=== PATIENT | male | born 1960 | race African-American/Black ===

== ENCOUNTER 2017-04-02 13:09 | Inpatient (IN) ==
[2017-04-02] MEDS ORDERED: SODIUM CHLORIDE 0.9% 1,000 ML IV STA (13:47)
[2017-04-02 14:32] LABS: Basophils # 0.1 10*3/uL (0.0-0.2); Basophils % 0.3 % (0.0-0.8); Hematocrit 41.8 VOL% (42.0-52.0); Hemoglobin 14.8 GM/DL (14.0-18.0); Immature Granulocytes % 0.5 %; Immature Granulocytes Absolute 0.08 #; Lymphocytes # 1.3 10*3/uL (1.4-4.0); Lymphocytes % 7.2 % (21.2-54.2); Mean Corpuscular HGB Conc 35.4 GM/DL (32-36); Mean Corpuscular Hemoglobin 30 PG (27-34); Mean Corpuscular Volume 84.3 FL (87-102); Mean Platelet Volume 12.2 FL (9.6-12.0); Monocytes # 1.6 10*3/uL (0.11-0.8); Monocytes % 9.4 % (1.7-12.7); Neutrophils # 14.5 10*3/uL (1.4-7.4); Neutrophils % 82.6 % (38.7-73.9); Platelet Count 156 T/CUMM (130-400); Red Blood Count 4.96 MC/CUMM (3.8-5.5); Red Cell Distribution Width 13.9 % (9.3-17.3); White Blood Count 17.5 T/CUMM (4-12)
[2017-04-02 14:50] LABS: Albumin 3.6 G/DL (3.4-5.0); Bilirubin,Total 0.7 MG/DL (0.2-1.0); Calcium 8.8 MG/DL (8.5-10.1); Lactic Acid 1.6 MMOL/L (0.4-2.0); Potassium 3.8 MMOL/L (3.5-5.1); Total Protein 7.3 G/DL (6.4-8.3)
[2017-04-02 15:36] LABS: Apearance,Urine Clear (Clear); Urine Color Yellow (Yellow); Urine Specific Gravity 1.005 (1.001-1.035)
[2017-04-02 15:37] LABS: Bilirubin,Urine Negative (Negative); Blood, Urine Negative (Negative); Glucose,Urine (UA) Negative (Negative); Ketones,Urine Negative (Negative); Nitrite,Urine Negative (Negative); Protein,Urine Negative; RBC,Urine 0-3 /HPF (0-4)
[2017-04-02 15:38] LABS: Bacteria,Urine Trace /HPF (Few); Squamous Epithelial Cell,Urine RARE /HPF (0-10); WBC,Urine 30-35 /HPF (0-6)
[2017-04-02] MEDS ORDERED: LEVOFLOXACIN INJ 750 MG in PREMIX 1 EACH IV STA (16:01)
[2017-04-02] MEDS ORDERED: LEVOFLOXACIN INJ 150 ML IV ONE (16:07)
[2017-04-02] MEDS ORDERED: ACETAMINOPHEN 500 MG TABLET ONE (16:12)
[2017-04-02] MEDS ORDERED: ACETAMINOPHEN 500 MG TABLET PO STA (16:15)
[2017-04-02] MEDS ORDERED: ONDANSETRON 4 MG/2 ML VIAL IV PRN (16:34)
[2017-04-02] MEDS ORDERED: MORPHINE 2 MG/1 ML SYRINGE IV PRN (16:34)
[2017-04-02] MEDS ORDERED: MAGNESIUM HYDROXIDE SUSP 30 ML UDCUP PO PRN (16:37)
[2017-04-02] MEDS ORDERED: CLORAZEPATE 3.75 MG TABLET PO PRN (16:49)
[2017-04-02] MEDS ORDERED: NICOTINE 21 MG/24 HR PATCH TRANSDERM SCH (17:00)
[2017-04-02] MEDS ORDERED: SODIUM CHLORIDE 0.9% 1,000 ML IV ONE ×2 (17:28→17:51)
[2017-04-02] MEDS ORDERED: THIAMINE 200 MG/2 ML VIAL ONE (18:43)
[2017-04-02] MEDS ORDERED: PIPERACILLIN/TAZOBACTAM 3,375 MG VIAL IV ONE (18:43)
[2017-04-02] MEDS ORDERED: SODIUM CHLORIDE 0.9% 100 ML IV ONE (18:44)
[2017-04-02] MEDS: THIAMINE 200 MG/2 ML VIAL IV SCH (18:49)
[2017-04-02] MEDS: SODIUM CHLORIDE 0.9% 1,000 ML IV SCH (18:49)
[2017-04-02] MEDS ORDERED: NOREPINEPHRINE 4 MG/4 ML VIAL IV ONE (19:14)
[2017-04-02] MEDS: ALBUTEROL/IPRATROPIUM 3 ML NEB RESP TX SCH (19:16)
[2017-04-02] MEDS: NOREPINEPHRINE 8 MG in SODIUM CHLORIDE 0.9% 242 ML IV SCH (19:24)
[2017-04-02] MEDS: PIPERACILLIN/TAZOBACTAM 3,375 MG in SODIUM CHLORIDE 0.9% 100 ML IV SCH (19:25)
[2017-04-02] MEDS ORDERED: TAMSULOSIN 0.4 MG CAPSULE PO ONE (21:42)
[2017-04-02] MEDS ORDERED: DOCUSATE SODIUM 100 MG CAPSULE ONE (21:42)
[2017-04-02] MEDS ORDERED: SIMETHICONE CHEW 80 MG TABLET PO ONE (21:42)
[2017-04-02] MEDS ORDERED: GABAPENTIN 300 MG CAPSULE ONE (21:42)
[2017-04-02] MEDS ORDERED: ENOXAPARIN 40 MG/0.4 ML SYRINGE ONE (21:42)
[2017-04-02] MEDS: SIMETHICONE CHEW 80 MG TABLET PO SCH (21:55)
[2017-04-02] MEDS: traZODone 50 MG TABLET PO SCH (21:55)
[2017-04-02] MEDS: TAMSULOSIN 0.4 MG CAPSULE PO SCH (21:55)
[2017-04-02] MEDS: ENOXAPARIN 40 MG/0.4 ML SYRINGE SUBCUT SCH (21:55)
[2017-04-02] MEDS: DOCUSATE SODIUM 100 MG CAPSULE PO SCH (21:55)
[2017-04-02] MEDS: SIMVASTATIN 20 MG TABLET PO SCH (21:56)
[2017-04-02] MEDS: TOPIRAMATE 100 MG TABLET PO SCH (21:56)
[2017-04-02] MEDS: GABAPENTIN 300 MG CAPSULE PO SCH (21:56)
[2017-04-03] MEDS: PIPERACILLIN/TAZOBACTAM 3,375 MG in SODIUM CHLORIDE 0.9% 100 ML IV SCH ×3 (04:39→20:59)
[2017-04-03 04:56] LABS: Basophils % 0.2 % (0.0-0.8); Hematocrit 39.8 VOL% (42.0-52.0); Hemoglobin 13.8 GM/DL (14.0-18.0); Immature Granulocytes % 0.5 %; Immature Granulocytes Absolute 0.09 #; Lymphocytes # 1.7 10*3/uL (1.4-4.0); Lymphocytes % 10.4 % (21.2-54.2); Mean Corpuscular HGB Conc 34.7 GM/DL (32-36); Mean Corpuscular Hemoglobin 30 PG (27-34); Mean Corpuscular Volume 85.6 FL (87-102); Mean Platelet Volume 12.2 FL (9.6-12.0); Monocytes # 1.5 10*3/uL (0.11-0.8); Neutrophils # 13.2 10*3/uL (1.4-7.4); Neutrophils % 79.9 % (38.7-73.9); Platelet Count 153 T/CUMM (130-400); Red Blood Count 4.65 MC/CUMM (3.8-5.5); Red Cell Distribution Width 14.1 % (9.3-17.3); White Blood Count 16.6 T/CUMM (4-12)
[2017-04-03 05:12] LABS: Calcium 8.2 MG/DL (8.5-10.1); Osmolality,Calculated 283.3 MOS/KG (273-304)
[2017-04-03] MEDS: SODIUM CHLORIDE 0.9% 1,000 ML IV SCH ×3 (07:44→16:59)
[2017-04-03] MEDS: ALBUTEROL/IPRATROPIUM 3 ML NEB RESP TX SCH ×4 (08:25→19:07)
[2017-04-03] MEDS ORDERED: THIAMINE 200 MG/2 ML VIAL ONE (08:53)
[2017-04-03] MEDS ORDERED: GABAPENTIN 100 MG CAPSULE ONE (08:53)
[2017-04-03] MEDS ORDERED: SIMETHICONE CHEW 80 MG TABLET PO ONE ×2 (08:54→11:45)
[2017-04-03] MEDS ORDERED: TAMSULOSIN 0.4 MG CAPSULE PO ONE (08:54)
[2017-04-03] MEDS ORDERED: PANTOPRAZOLE 40 MG TABLET PO ONE (08:54)
[2017-04-03] MEDS ORDERED: ASPIRIN CHEW 81 MG TABLET PO ONE (08:54)
[2017-04-03] MEDS ORDERED: DOCUSATE SODIUM 100 MG CAPSULE ONE (08:54)
[2017-04-03] MEDS: SIMETHICONE CHEW 80 MG TABLET PO SCH ×4 (09:09→21:03)
[2017-04-03] MEDS: PANTOPRAZOLE 40 MG TABLET PO SCH (09:10)
[2017-04-03] MEDS: TAMSULOSIN 0.4 MG CAPSULE PO SCH ×2 (09:10→21:04)
[2017-04-03] MEDS: THIAMINE 200 MG/2 ML VIAL IV SCH (09:10)
[2017-04-03] MEDS: GABAPENTIN 100 MG CAPSULE PO SCH (09:10)
[2017-04-03] MEDS: ASPIRIN EC 81 MG TABLET PO SCH (09:10)
[2017-04-03] MEDS: DOCUSATE SODIUM 100 MG CAPSULE PO SCH ×2 (09:10→21:02)
[2017-04-03] MEDS: MULTIVITAMIN (BEROCCA) TABLET PO SCH (10:39)
[2017-04-03] MEDS: CHOLECALCIFEROL 1,000 UNIT TABLET PO SCH (10:39)
[2017-04-03] MEDS: CYANOCOBALAMIN 500 MCG TABLET PO SCH (10:39)
[2017-04-03] MEDS: FOLIC ACID 1 MG TABLET PO SCH (10:39)
[2017-04-03] MEDS: MULTIVITAMIN (CENTRUM) TABLET PO SCH (10:40)
[2017-04-03] MEDS: TOPIRAMATE 100 MG TABLET PO SCH ×2 (11:46→21:02)
[2017-04-03] MEDS ORDERED: LEVOFLOXACIN INJ 500 MG in PREMIX 1 EACH IV SCH (16:34)
[2017-04-03] MEDS: NICOTINE 21 MG/24 HR PATCH TRANSDERM SCH (17:07)
[2017-04-03] MEDS: NOREPINEPHRINE 8 MG in SODIUM CHLORIDE 0.9% 242 ML IV SCH (20:59)
[2017-04-03] MEDS: ACETAMINOPHEN 325 MG TABLET PO PRN (21:02)
[2017-04-03] MEDS: traZODone 50 MG TABLET PO SCH (21:03)
[2017-04-03] MEDS: GABAPENTIN 300 MG CAPSULE PO SCH (21:03)
[2017-04-03] MEDS: SIMVASTATIN 20 MG TABLET PO SCH (21:04)
[2017-04-03] MEDS: ENOXAPARIN 40 MG/0.4 ML SYRINGE SUBCUT SCH (21:05)
[2017-04-04] MEDS: SODIUM CHLORIDE 0.9% 1,000 ML IV SCH ×4 (01:00→22:05)
[2017-04-04] MEDS: PIPERACILLIN/TAZOBACTAM 3,375 MG in SODIUM CHLORIDE 0.9% 100 ML IV SCH ×3 (04:45→22:04)
[2017-04-04] MEDS: ALBUTEROL/IPRATROPIUM 3 ML NEB RESP TX SCH ×4 (07:07→20:20)
[2017-04-04 07:30] LABS: Basophils % 0.3 % (0.0-0.8); Eosinophils # 0.1 10*3/uL (0.0-0.87); Eosinophils % 0.4 % (0.00-10.9); Hematocrit 36.8 VOL% (42.0-52.0); Hemoglobin 12.3 GM/DL (14.0-18.0); Immature Granulocytes % 0.4 %; Immature Granulocytes Absolute 0.05 #; Lymphocytes # 1.6 10*3/uL (1.4-4.0); Lymphocytes % 14.6 % (21.2-54.2); Mean Corpuscular HGB Conc 33.4 GM/DL (32-36); Mean Corpuscular Hemoglobin 29 PG (27-34); Mean Platelet Volume 11.5 FL (9.6-12.0); Monocytes # 1.2 10*3/uL (0.11-0.8); Monocytes % 10.8 % (1.7-12.7); Neutrophils # 8.2 10*3/uL (1.4-7.4); Neutrophils % 73.5 % (38.7-73.9); Platelet Count 144 T/CUMM (130-400); Red Blood Count 4.18 MC/CUMM (3.8-5.5); Red Cell Distribution Width 14.1 % (9.3-17.3); White Blood Count 11.1 T/CUMM (4-12)
[2017-04-04] MEDS: SIMETHICONE CHEW 80 MG TABLET PO SCH ×4 (07:47→22:03)
[2017-04-04 07:55] LABS: Calcium 8.2 MG/DL (8.5-10.1); Osmolality,Calculated 281.1 MOS/KG (273-304); Potassium 4.1 MMOL/L (3.5-5.1)
[2017-04-04] MEDS: DOCUSATE SODIUM 100 MG CAPSULE PO SCH ×2 (08:00→22:03)
[2017-04-04] MEDS: MULTIVITAMIN (CENTRUM) TABLET PO SCH (08:00)
[2017-04-04] MEDS: CYANOCOBALAMIN 500 MCG TABLET PO SCH (08:00)
[2017-04-04] MEDS: TOPIRAMATE 100 MG TABLET PO SCH ×2 (08:01→22:04)
[2017-04-04] MEDS: MULTIVITAMIN (BEROCCA) TABLET PO SCH (08:01)
[2017-04-04] MEDS: CHOLECALCIFEROL 1,000 UNIT TABLET PO SCH (08:01)
[2017-04-04] MEDS: ASPIRIN EC 81 MG TABLET PO SCH (08:01)
[2017-04-04] MEDS: TAMSULOSIN 0.4 MG CAPSULE PO SCH ×2 (08:01→22:04)
[2017-04-04] MEDS: PANTOPRAZOLE 40 MG TABLET PO SCH (08:01)
[2017-04-04] MEDS: GABAPENTIN 100 MG CAPSULE PO SCH (08:01)
[2017-04-04] MEDS: THIAMINE 200 MG/2 ML VIAL IV SCH (08:02)
[2017-04-04] MEDS: FOLIC ACID 1 MG TABLET PO SCH (08:02)
[2017-04-04] MEDS: ACETAMINOPHEN 325 MG TABLET PO PRN (11:59)
[2017-04-04 14:08] LABS: Hepatitis A Ab IgM Result Negative (Negative); Hepatitis B Core IgM Quant 0.16 Index; Hepatitis B Core IgM Result Negative (Negative); Hepatitis B Surface Ag Quant 0.24 Index; Hepatitis B Surface Ag Result Negative (Negative)
[2017-04-04] MEDS: NICOTINE 21 MG/24 HR PATCH TRANSDERM SCH ×2 (15:32→16:01)
[2017-04-04] MEDS: traZODone 50 MG TABLET PO SCH (22:03)
[2017-04-04] MEDS: GABAPENTIN 300 MG CAPSULE PO SCH (22:03)
[2017-04-04] MEDS: SIMVASTATIN 20 MG TABLET PO SCH (22:04)
[2017-04-04] MEDS: ENOXAPARIN 40 MG/0.4 ML SYRINGE SUBCUT SCH (22:04)
[2017-04-05] MEDS: SODIUM CHLORIDE 0.9% 1,000 ML IV SCH ×3 (02:33→17:26)
[2017-04-05] MEDS: PIPERACILLIN/TAZOBACTAM 3,375 MG in SODIUM CHLORIDE 0.9% 100 ML IV SCH ×2 (03:33→13:11)
[2017-04-05 06:05] LABS: Basophils % 0.3 % (0.0-0.8); Eosinophils # 0.1 10*3/uL (0.0-0.87); Eosinophils % 0.5 % (0.00-10.9); Hematocrit 36.4 VOL% (42.0-52.0); Hemoglobin 12.3 GM/DL (14.0-18.0); Immature Granulocytes % 0.5 %; Immature Granulocytes Absolute 0.05 #; Lymphocytes # 1.8 10*3/uL (1.4-4.0); Lymphocytes % 15.9 % (21.2-54.2); Mean Corpuscular HGB Conc 33.8 GM/DL (32-36); Mean Corpuscular Hemoglobin 29 PG (27-34); Mean Corpuscular Volume 86.1 FL (87-102); Mean Platelet Volume 12.5 FL (9.6-12.0); Monocytes # 1.1 10*3/uL (0.11-0.8); Monocytes % 10.3 % (1.7-12.7); Neutrophils % 72.5 % (38.7-73.9); Platelet Count 173 T/CUMM (130-400); Red Blood Count 4.23 MC/CUMM (3.8-5.5); Red Cell Distribution Width 13.8 % (9.3-17.3); White Blood Count 11.1 T/CUMM (4-12)
[2017-04-05 06:35] LABS: Bilirubin,Total 1.6 MG/DL (0.2-1.0); Calcium 8.4 MG/DL (8.5-10.1); Osmolality,Calculated 272.8 MOS/KG (273-304); Potassium 3.7 MMOL/L (3.5-5.1); Total Protein 6.7 G/DL (6.4-8.3)
[2017-04-05] MEDS: ALBUTEROL/IPRATROPIUM 3 ML NEB RESP TX SCH ×3 (07:58→14:35)
[2017-04-05] MEDS: SIMETHICONE CHEW 80 MG TABLET PO SCH ×4 (08:33→17:26)
[2017-04-05] MEDS: CYANOCOBALAMIN 500 MCG TABLET PO SCH (09:16)
[2017-04-05] MEDS: TAMSULOSIN 0.4 MG CAPSULE PO SCH (09:17)
[2017-04-05] MEDS: GABAPENTIN 100 MG CAPSULE PO SCH (09:17)
[2017-04-05] MEDS: MULTIVITAMIN (CENTRUM) TABLET PO SCH (09:17)
[2017-04-05] MEDS: CHOLECALCIFEROL 1,000 UNIT TABLET PO SCH (09:17)
[2017-04-05] MEDS: THIAMINE 200 MG/2 ML VIAL IV SCH (09:17)
[2017-04-05] MEDS: DOCUSATE SODIUM 100 MG CAPSULE PO SCH (09:17)
[2017-04-05] MEDS: ASPIRIN EC 81 MG TABLET PO SCH (09:17)
[2017-04-05] MEDS: MULTIVITAMIN (BEROCCA) TABLET PO SCH (09:17)
[2017-04-05] MEDS: FOLIC ACID 1 MG TABLET PO SCH (09:17)
[2017-04-05] MEDS: TOPIRAMATE 100 MG TABLET PO SCH (09:17)
[2017-04-05] MEDS: PANTOPRAZOLE 40 MG TABLET PO SCH (09:17)
[2017-04-05 12:05] VITALS: BP 150/82
[2017-04-05] MEDS: NICOTINE 21 MG/24 HR PATCH TRANSDERM SCH (17:26)
== END 2017-04-05 19:12 | disposition home or self-care (01) | DRG 871 ==
LOC: EDBD → EDUNIT# → N.ED 13:09 → SUATTDRO 16:34 → N.EDINP 16:34 → N.ICU 04-03 12:00 → N.5E 04-04 13:42
PROVIDERS: ADMIT Internal Medicine; ATTEND Internal Medicine Infectious Disease

== ENCOUNTER 2018-10-22 07:58 | Inpatient (IN) ==
[2018-10-22] MEDS ORDERED: SODIUM CHLORIDE 0.9% 1,000 ML IV STA ×2 (08:39→09:08)
[2018-10-22 08:50] LABS: Basophils # 0.1 10*3/uL (0.0-0.2); Basophils % 0.5 % (0.0-0.8); Eosinophils # 0.1 10*3/uL (0.0-0.87); Eosinophils % 0.6 % (0.00-10.9); Hematocrit 40.6 VOL% (42.0-52.0); Hemoglobin 13.8 GM/DL (14.0-18.0); Immature Granulocytes % 0.7 %; Immature Granulocytes Absolute 0.17 #; Lymphocytes # 4.5 10*3/uL (1.4-4.0); Lymphocytes % 18.4 % (21.2-54.2); Mean Corpuscular Volume 84.4 FL (87-102); Mean Platelet Volume 11.1 FL (9.6-12.0); Monocytes % 8.2 % (1.7-12.7); Neutrophils % 71.6 % (38.7-73.9); Platelet Count 274 T/CUMM (130-400); Red Blood Count 4.81 MC/CUMM (3.8-5.5); Red Cell Distribution Width 13.4 % (9.3-17.3); White Blood Count 24.2 T/CUMM (4-12)
[2018-10-22 09:05] LABS: Alanine Aminotransferase 17 U/L (16-61); Albumin 3.3 G/DL (3.4-5.0); Alkaline Phosphatase 99 U/L (45-117); Aspartate Amino Transferase 8 U/L (0-37); Blood Urea Nitrogen 19 MG/DL (7-18); Calcium 9.9 MG/DL (8.5-10.1); Glucose 134 MG/DL (74-106); Osmolality,Calculated 278.7 MOS/KG (273-304); Total Protein 8.6 G/DL (6.4-8.3)
[2018-10-22 09:20] LABS: Eosinophils 1 % (0-10); Hypochromasia Slight; Lymphocytes 16 % (20-55); Platelet Estimate Adequate; Segmented Neutrophils 73 % (50-85); Total Cells Counted 100
[2018-10-22] MEDS ORDERED: PIPERACILLIN/TAZOBACTAM 3,375 MG in SODIUM CHLORIDE 0.9% 100 ML IV STA (09:20)
[2018-10-22] MEDS ORDERED: ACETAMINOPHEN 325 MG TABLET PO PRN (11:21)
[2018-10-22] MEDS ORDERED: DOCUSATE SODIUM 100 MG CAPSULE PO PRN (11:21)
[2018-10-22] MEDS ORDERED: ONDANSETRON 4 MG/2 ML VIAL IV PRN (11:21)
[2018-10-22 12:07] LABS: Risk Ratio 4.19; Thyroid Stimulating Hormone 0.749 uIU/ml (0.358-3.74); VLDL CHOLESTEROL 23.8 MG/DL
[2018-10-22] MEDS ORDERED: ALBUTEROL 2.5 MG/3 ML NEB RESP TX ONE (13:37)
[2018-10-22] MEDS ORDERED: cefTRIAXone 1,000 MG in SYRINGE 1 EACH IV ONE (13:59)
[2018-10-22] MEDS ORDERED: cefTRIAXone 1,000 MG VIAL ONE (14:05)
[2018-10-22] MEDS ORDERED: MAGNESIUM SULF RIDER 4 GM in PREMIX 1 EACH IV PRN (15:02)
[2018-10-22] MEDS ORDERED: PHENYLEPHRINE DRIP 20 MG/250 ML PREMIX IV ONE (15:11)
[2018-10-22] MEDS ORDERED: SEVOFLURANE 1 UNIT/15 MINUTE INH ONE (15:11)
[2018-10-22] MEDS ORDERED: PROPOFOL 200 MG/20 ML VIAL IV ONE (15:11)
[2018-10-22] MEDS ORDERED: MIDAZOLAM 2 MG/2 ML VIAL ONE (15:11)
[2018-10-22] MEDS ORDERED: fentaNYL 100 MCG/2 ML VIAL ONE (15:12)
[2018-10-22] MEDS ORDERED: ROCURONIUM 100 MG/10 ML VIAL IV ONE (15:12)
[2018-10-22] MEDS ORDERED: ETOMIDATE 40 MG/20 ML VIAL IV ONE (15:12)
[2018-10-22] MEDS ORDERED: PHENYLEPHRINE 1 MG/10 ML SYRINGE IV ONE (15:12)
[2018-10-22] MEDS ORDERED: SUCCINYLCHOLINE 200 MG/10 ML VIAL ONE (15:12)
[2018-10-22] MEDS ORDERED: CETIRIZINE 10 MG TABLET PO PRN (15:31)
[2018-10-22] MEDS ORDERED: TOPIRAMATE 100 MG TABLET PO SCH (16:00)
[2018-10-22] MEDS: SODIUM CHLORIDE 0.9% 1,000 ML IV SCH (16:15)
[2018-10-22] MEDS: ENOXAPARIN 40 MG/0.4 ML SYRINGE SUBCUT SCH (16:16)
[2018-10-22] MEDS: PHENYLEPHRINE DRIP 40 MG/250 ML PREMIX IV PRN (16:45)
[2018-10-22 17:37] LABS: Apearance,Urine CLEAR (Clear); Bilirubin,Urine Negative (Negative); Blood, Urine Small mg/dL (Negative); Glucose,Urine (UA) Negative (Negative); Ketones,Urine Negative (Negative); Nitrite,Urine Negative (Negative); Protein,Urine 30 MG/DL; RBC,Urine 24 /HPF (0-4); Urine Color Straw (Yellow); Urine Specific Gravity 1.011 (1.001-1.035); Urine Urobilinogen < 2.0 EU/DL (0.2-1.0); WBC,Urine 13 /HPF (0-6)
[2018-10-22 17:57] LABS: Cannabinoid Screen,Urine 70 (Negative)
[2018-10-22 17:58] LABS: Barbiturates Screen,Urine <20 (Negative); Benzodiazepines Screen,Urine /POS (Negative); Opiate Screen,Urine <50 (Negative); Phencyclidine Screen,Urine <5 (Negative)
[2018-10-22] MEDS: PIPERACILLIN/TAZOBACTAM 3,375 MG in SODIUM CHLORIDE 0.9% 100 ML IV SCH (18:22)
[2018-10-22] MEDS: MAGNESIUM SULF RIDER 2 GM in PREMIX 1 EACH IV PRN (19:36)
[2018-10-22] MEDS: ALBUTEROL/IPRATROPIUM 3 ML NEB RESP TX SCH (20:16)
[2018-10-22] MEDS ORDERED: ACAMPROSATE 333 MG PO SCH (21:00)
[2018-10-22] MEDS: traZODone 50 MG TABLET PO SCH (21:27)
[2018-10-22] MEDS: GABAPENTIN 100 MG CAPSULE PO SCH (21:28)
[2018-10-22] MEDS: SIMVASTATIN 40 MG TABLET PO SCH (21:28)
[2018-10-22] MEDS: LATANOPROST 0.005% OPH SOLN 2.5 ML BOTTLE BOTH EYES SCH (21:28)
[2018-10-22] MEDS: levETIRAcetam 500 MG TABLET PO SCH (21:28)
[2018-10-23] MEDS: SODIUM CHLORIDE 0.9% 1,000 ML IV SCH ×3 (01:42→16:49)
[2018-10-23] MEDS: PIPERACILLIN/TAZOBACTAM 3,375 MG in SODIUM CHLORIDE 0.9% 100 ML IV SCH ×3 (02:58→23:26)
[2018-10-23] MEDS: PHENYLEPHRINE DRIP 40 MG/250 ML PREMIX IV PRN ×2 (02:58→10:50)
[2018-10-23 04:23] LABS: Basophils # 0.1 10*3/uL (0.0-0.2); Basophils % 0.3 % (0.0-0.8); Eosinophils # 0.2 10*3/uL (0.0-0.87); Eosinophils % 0.7 % (0.00-10.9); Hematocrit 34.1 VOL% (42.0-52.0); Immature Granulocytes % 0.6 %; Immature Granulocytes Absolute 0.15 #; Lymphocytes # 3.6 10*3/uL (1.4-4.0); Lymphocytes % 15.1 % (21.2-54.2); Mean Corpuscular HGB Conc 33.7 GM/DL (32-36); Mean Corpuscular Volume 84.6 FL (87-102); Mean Platelet Volume 11.8 FL (9.6-12.0); Monocytes % 6.1 % (1.7-12.7); Neutrophils % 77.2 % (38.7-73.9); Platelet Count 250 T/CUMM (130-400); Red Blood Count 4.03 MC/CUMM (3.8-5.5); Red Cell Distribution Width 13.3 % (9.3-17.3)
[2018-10-23 04:29] LABS: Calcium 8.2 MG/DL (8.5-10.1); Osmolality,Calculated 279.4 MOS/KG (273-304)
[2018-10-23 04:31] LABS: Hemoglobin 11.5 GM/DL (14.0-18.0)
[2018-10-23 04:48] LABS: Band Neutrophils 1 % (0-10); Hypochromasia 1+; Lymphocytes 17 % (20-55); Platelet Estimate Adequate; Segmented Neutrophils 79 % (50-85); Total Cells Counted 100
[2018-10-23] MEDS: ALBUTEROL/IPRATROPIUM 3 ML NEB RESP TX SCH ×4 (07:38→19:34)
[2018-10-23] MEDS ORDERED: LEVOFLOXACIN INJ 500 MG in PREMIX 1 EACH IV ONE (08:26)
[2018-10-23] MEDS: GABAPENTIN 100 MG CAPSULE PO SCH ×3 (09:29→20:35)
[2018-10-23] MEDS: MULTIVITAMIN (CENTRUM) TABLET PO SCH (09:30)
[2018-10-23] MEDS: ASPIRIN EC 81 MG TABLET PO SCH (09:30)
[2018-10-23] MEDS: levETIRAcetam 500 MG TABLET PO SCH ×2 (09:31→20:35)
[2018-10-23] MEDS: THIAMINE 100 MG TABLET PO SCH (09:53)
[2018-10-23] MEDS: TOPIRAMATE 100 MG TABLET PO SCH ×2 (09:53→20:34)
[2018-10-23] MEDS ORDERED: SODIUM CHLORIDE 0.9% 1,500 ML IV ONE (10:00)
[2018-10-23] MEDS: TIMOLOL 0.5% OPH SOLN 5 ML BOTTLE BOTH EYES SCH (11:38)
[2018-10-23] MEDS ORDERED: LEVOFLOXACIN INJ 100 ML IV ONE (12:21)
[2018-10-23] MEDS ORDERED: PHENYLEPHRINE DRIP 20 MG/250 ML PREMIX IV ONE (13:57)
[2018-10-23] MEDS ORDERED: SEVOFLURANE 1 UNIT/15 MINUTE INH ONE (13:57)
[2018-10-23] MEDS ORDERED: PROPOFOL 200 MG/20 ML VIAL IV ONE (13:57)
[2018-10-23] MEDS ORDERED: fentaNYL 100 MCG/2 ML VIAL ONE (13:57)
[2018-10-23] MEDS ORDERED: MIDAZOLAM 2 MG/2 ML VIAL ONE (13:57)
[2018-10-23] MEDS ORDERED: ETOMIDATE 40 MG/20 ML VIAL IV ONE (13:58)
[2018-10-23] MEDS ORDERED: ROCURONIUM 100 MG/10 ML VIAL IV ONE (13:58)
[2018-10-23] MEDS ORDERED: ONDANSETRON 4 MG/2 ML VIAL ONE (13:58)
[2018-10-23] MEDS ORDERED: GLYCOPYRROLATE 0.4 MG/2 ML VIAL ONE (13:58)
[2018-10-23] MEDS ORDERED: NEOSTIGMINE 10 MG/10 ML VIAL ONE (13:58)
[2018-10-23] MEDS: ENOXAPARIN 40 MG/0.4 ML SYRINGE SUBCUT SCH (17:00)
[2018-10-23] MEDS: traZODone 50 MG TABLET PO SCH (20:34)
[2018-10-23] MEDS: SIMVASTATIN 40 MG TABLET PO SCH (20:35)
[2018-10-23] MEDS: LATANOPROST 0.005% OPH SOLN 2.5 ML BOTTLE BOTH EYES SCH (20:35)
[2018-10-24] MEDS: SODIUM CHLORIDE 0.9% 1,000 ML IV SCH ×2 (00:43→09:00)
[2018-10-24 05:11] LABS: Basophils % 0.2 % (0.0-0.8); Eosinophils # 0.2 10*3/uL (0.0-0.87); Eosinophils % 1.3 % (0.00-10.9); Hematocrit 30.3 VOL% (42.0-52.0); Immature Granulocytes % 0.5 %; Immature Granulocytes Absolute 0.07 #; Lymphocytes # 2.7 10*3/uL (1.4-4.0); Lymphocytes % 20.9 % (21.2-54.2); Mean Corpuscular Volume 86.3 FL (87-102); Mean Platelet Volume 11.6 FL (9.6-12.0); Monocytes % 6.9 % (1.7-12.7); Neutrophils % 70.2 % (38.7-73.9); Platelet Count 196 T/CUMM (130-400); Red Blood Count 3.51 MC/CUMM (3.8-5.5); Red Cell Distribution Width 13.5 % (9.3-17.3); White Blood Count 12.9 T/CUMM (4-12)
[2018-10-24] MEDS: PIPERACILLIN/TAZOBACTAM 3,375 MG in SODIUM CHLORIDE 0.9% 100 ML IV SCH ×3 (06:34→23:31)
[2018-10-24 06:56] LABS: Calcium 7.9 MG/DL (8.5-10.1)
[2018-10-24] MEDS: ALBUTEROL/IPRATROPIUM 3 ML NEB RESP TX SCH ×4 (07:40→19:45)
[2018-10-24] MEDS: GABAPENTIN 100 MG CAPSULE PO SCH ×3 (09:14→21:38)
[2018-10-24] MEDS: levETIRAcetam 500 MG TABLET PO SCH ×2 (09:15→21:38)
[2018-10-24] MEDS: TOPIRAMATE 100 MG TABLET PO SCH ×2 (09:15→21:39)
[2018-10-24] MEDS: THIAMINE 100 MG TABLET PO SCH (09:16)
[2018-10-24] MEDS: MULTIVITAMIN (CENTRUM) TABLET PO SCH (09:16)
[2018-10-24] MEDS: ASPIRIN EC 81 MG TABLET PO SCH (09:16)
[2018-10-24] MEDS: TIMOLOL 0.5% OPH SOLN 5 ML BOTTLE BOTH EYES SCH (09:20)
[2018-10-24] MEDS: LACTATED RINGERS 1,000 ML IV SCH (13:40)
[2018-10-24] MEDS: ENOXAPARIN 40 MG/0.4 ML SYRINGE SUBCUT SCH (13:40)
[2018-10-24] MEDS: traZODone 50 MG TABLET PO SCH (21:38)
[2018-10-24] MEDS: SIMVASTATIN 40 MG TABLET PO SCH (21:39)
[2018-10-24] MEDS: LATANOPROST 0.005% OPH SOLN 2.5 ML BOTTLE BOTH EYES SCH (22:02)
[2018-10-25 05:37] LABS: Basophils # 0.1 10*3/uL (0.0-0.2); Basophils % 0.5 % (0.0-0.8); Eosinophils # 0.2 10*3/uL (0.0-0.87); Eosinophils % 1.9 % (0.00-10.9); Hematocrit 28.4 VOL% (42.0-52.0); Hemoglobin 9.6 GM/DL (14.0-18.0); Immature Granulocytes Absolute 0.11 #; Lymphocytes # 2.3 10*3/uL (1.4-4.0); Lymphocytes % 20.9 % (21.2-54.2); Mean Corpuscular HGB Conc 33.8 GM/DL (32-36); Mean Platelet Volume 12.1 FL (9.6-12.0); Monocytes % 8.2 % (1.7-12.7); Neutrophils % 67.5 % (38.7-73.9); Platelet Count 140 T/CUMM (130-400); Red Blood Count 3.34 MC/CUMM (3.8-5.5); Red Cell Distribution Width 13.2 % (9.3-17.3)
[2018-10-25 05:43] LABS: Calcium 8.8 MG/DL (8.5-10.1); Osmolality,Calculated 281.1 MOS/KG (273-304)
[2018-10-25] MEDS: PIPERACILLIN/TAZOBACTAM 3,375 MG in SODIUM CHLORIDE 0.9% 100 ML IV SCH ×3 (06:37→23:41)
[2018-10-25] MEDS: LACTATED RINGERS 1,000 ML IV SCH ×3 (06:40→21:05)
[2018-10-25] MEDS: ALBUTEROL/IPRATROPIUM 3 ML NEB RESP TX SCH ×4 (07:55→19:47)
[2018-10-25] MEDS: ASPIRIN EC 81 MG TABLET PO SCH (09:29)
[2018-10-25] MEDS: MULTIVITAMIN (CENTRUM) TABLET PO SCH (09:29)
[2018-10-25] MEDS: levETIRAcetam 500 MG TABLET PO SCH ×2 (09:30→21:01)
[2018-10-25] MEDS: THIAMINE 100 MG TABLET PO SCH (09:30)
[2018-10-25] MEDS: TOPIRAMATE 100 MG TABLET PO SCH ×2 (09:31→21:01)
[2018-10-25] MEDS: TIMOLOL 0.5% OPH SOLN 5 ML BOTTLE BOTH EYES SCH (09:31)
[2018-10-25] MEDS: MAGNESIUM SULF RIDER 2 GM in PREMIX 1 EACH IV PRN ×2 (09:33→11:23)
[2018-10-25] MEDS: GABAPENTIN 100 MG CAPSULE PO SCH ×3 (09:39→21:01)
[2018-10-25] MEDS: LISINOPRIL 5 MG TABLET PO SCH (14:08)
[2018-10-25] MEDS: ENOXAPARIN 40 MG/0.4 ML SYRINGE SUBCUT SCH (14:09)
[2018-10-25] MEDS: LATANOPROST 0.005% OPH SOLN 2.5 ML BOTTLE BOTH EYES SCH (21:01)
[2018-10-25] MEDS: SIMVASTATIN 40 MG TABLET PO SCH (21:01)
[2018-10-25] MEDS: traZODone 50 MG TABLET PO SCH (21:10)
[2018-10-26 05:25] LABS: Basophils # 0.1 10*3/uL (0.0-0.2); Basophils % 0.5 % (0.0-0.8); Eosinophils # 0.2 10*3/uL (0.0-0.87); Hematocrit 31.9 VOL% (42.0-52.0); Hemoglobin 10.6 GM/DL (14.0-18.0); Immature Granulocytes % 0.7 %; Immature Granulocytes Absolute 0.07 #; Lymphocytes # 3.1 10*3/uL (1.4-4.0); Lymphocytes % 29.3 % (21.2-54.2); Mean Corpuscular HGB Conc 33.2 GM/DL (32-36); Mean Corpuscular Volume 86.7 FL (87-102); Mean Platelet Volume 11.9 FL (9.6-12.0); Monocytes % 7.3 % (1.7-12.7); Neutrophils % 60.2 % (38.7-73.9); Platelet Count 235 T/CUMM (130-400); Red Blood Count 3.68 MC/CUMM (3.8-5.5); Red Cell Distribution Width 13.4 % (9.3-17.3); White Blood Count 10.5 T/CUMM (4-12)
[2018-10-26 05:51] LABS: Calcium 8.9 MG/DL (8.5-10.1); Osmolality,Calculated 279.4 MOS/KG (273-304)
[2018-10-26] MEDS: LACTATED RINGERS 1,000 ML IV SCH ×2 (06:04→21:42)
[2018-10-26] MEDS: PIPERACILLIN/TAZOBACTAM 3,375 MG in SODIUM CHLORIDE 0.9% 100 ML IV SCH ×2 (06:05→14:39)
[2018-10-26] MEDS: ALBUTEROL/IPRATROPIUM 3 ML NEB RESP TX SCH ×4 (07:59→20:18)
[2018-10-26] MEDS: GABAPENTIN 100 MG CAPSULE PO SCH ×3 (09:34→21:41)
[2018-10-26] MEDS: ASPIRIN EC 81 MG TABLET PO SCH (09:34)
[2018-10-26] MEDS: levETIRAcetam 500 MG TABLET PO SCH ×2 (09:34→21:41)
[2018-10-26] MEDS: THIAMINE 100 MG TABLET PO SCH (09:34)
[2018-10-26] MEDS: MULTIVITAMIN (CENTRUM) TABLET PO SCH (09:34)
[2018-10-26] MEDS: TOPIRAMATE 100 MG TABLET PO SCH ×2 (09:35→21:41)
[2018-10-26] MEDS: LISINOPRIL 5 MG TABLET PO SCH (09:35)
[2018-10-26] MEDS: TIMOLOL 0.5% OPH SOLN 5 ML BOTTLE BOTH EYES SCH ×2 (09:35→12:58)
[2018-10-26] MEDS: ENOXAPARIN 40 MG/0.4 ML SYRINGE SUBCUT SCH (14:39)
[2018-10-26] MEDS: SIMVASTATIN 40 MG TABLET PO SCH (21:41)
[2018-10-26] MEDS: LATANOPROST 0.005% OPH SOLN 2.5 ML BOTTLE BOTH EYES SCH (21:42)
[2018-10-26] MEDS: traZODone 50 MG TABLET PO SCH (21:46)
[2018-10-27] MEDS: PIPERACILLIN/TAZOBACTAM 3,375 MG in SODIUM CHLORIDE 0.9% 100 ML IV SCH ×4 (00:02→23:55)
[2018-10-27] MEDS: ALBUTEROL/IPRATROPIUM 3 ML NEB RESP TX SCH ×4 (07:32→19:31)
[2018-10-27] MEDS: MULTIVITAMIN (CENTRUM) TABLET PO SCH (11:00)
[2018-10-27] MEDS: levETIRAcetam 500 MG TABLET PO SCH ×2 (11:00→20:33)
[2018-10-27] MEDS: LISINOPRIL 5 MG TABLET PO SCH (11:00)
[2018-10-27] MEDS: TOPIRAMATE 100 MG TABLET PO SCH ×2 (11:00→20:34)
[2018-10-27] MEDS: THIAMINE 100 MG TABLET PO SCH (11:00)
[2018-10-27] MEDS: ASPIRIN EC 81 MG TABLET PO SCH (11:00)
[2018-10-27] MEDS: GABAPENTIN 100 MG CAPSULE PO SCH ×3 (11:01→20:33)
[2018-10-27] MEDS: TIMOLOL 0.5% OPH SOLN 5 ML BOTTLE BOTH EYES SCH (11:05)
[2018-10-27] MEDS: ENOXAPARIN 40 MG/0.4 ML SYRINGE SUBCUT SCH (14:20)
[2018-10-27] MEDS: SIMVASTATIN 40 MG TABLET PO SCH (20:33)
[2018-10-27] MEDS: LATANOPROST 0.005% OPH SOLN 2.5 ML BOTTLE BOTH EYES SCH (20:34)
[2018-10-27] MEDS: traZODone 50 MG TABLET PO SCH (20:34)
[2018-10-28 05:33] LABS: Basophils # 0.1 10*3/uL (0.0-0.2); Basophils % 0.8 % (0.0-0.8); Eosinophils # 0.2 10*3/uL (0.0-0.87); Eosinophils % 2.2 % (0.00-10.9); Hematocrit 34.6 VOL% (42.0-52.0); Hemoglobin 11.6 GM/DL (14.0-18.0); Immature Granulocytes % 0.7 %; Immature Granulocytes Absolute 0.08 #; Lymphocytes % 27.8 % (21.2-54.2); Mean Corpuscular HGB Conc 33.5 GM/DL (32-36); Mean Corpuscular Volume 84.4 FL (87-102); Mean Platelet Volume 11.1 FL (9.6-12.0); Monocytes % 9.2 % (1.7-12.7); Neutrophils % 59.3 % (38.7-73.9); Platelet Count 292 T/CUMM (130-400); Red Cell Distribution Width 13.5 % (9.3-17.3); White Blood Count 10.7 T/CUMM (4-12)
[2018-10-28 06:15] LABS: Calcium 9.6 MG/DL (8.5-10.1); Osmolality,Calculated 279.4 MOS/KG (273-304)
[2018-10-28] MEDS: PIPERACILLIN/TAZOBACTAM 3,375 MG in SODIUM CHLORIDE 0.9% 100 ML IV SCH ×3 (06:28→22:51)
[2018-10-28] MEDS: LACTATED RINGERS 1,000 ML IV SCH ×2 (06:56→22:52)
[2018-10-28] MEDS: ALBUTEROL/IPRATROPIUM 3 ML NEB RESP TX SCH ×4 (07:26→18:59)
[2018-10-28] MEDS: MULTIVITAMIN (CENTRUM) TABLET PO SCH (08:28)
[2018-10-28] MEDS: LISINOPRIL 5 MG TABLET PO SCH (08:28)
[2018-10-28] MEDS: TOPIRAMATE 100 MG TABLET PO SCH ×2 (08:29→20:39)
[2018-10-28] MEDS: THIAMINE 100 MG TABLET PO SCH (08:29)
[2018-10-28] MEDS: ASPIRIN EC 81 MG TABLET PO SCH (08:29)
[2018-10-28] MEDS: levETIRAcetam 500 MG TABLET PO SCH ×2 (08:29→20:38)
[2018-10-28] MEDS: GABAPENTIN 100 MG CAPSULE PO SCH ×3 (08:29→20:38)
[2018-10-28] MEDS: TIMOLOL 0.5% OPH SOLN 5 ML BOTTLE BOTH EYES SCH (08:31)
[2018-10-28] MEDS ORDERED: BUPIVACAINE MPF 0.25% 30 ML VIAL ONE (11:26)
[2018-10-28] MEDS ORDERED: LIDOCAINE MPF 1% /EPI 30 ML VIAL ONE (11:26)
[2018-10-28] MEDS: ENOXAPARIN 40 MG/0.4 ML SYRINGE SUBCUT SCH (14:37)
[2018-10-28] MEDS: SIMVASTATIN 40 MG TABLET PO SCH (20:38)
[2018-10-28] MEDS: traZODone 50 MG TABLET PO SCH (20:39)
[2018-10-28] MEDS: LATANOPROST 0.005% OPH SOLN 2.5 ML BOTTLE BOTH EYES SCH (20:39)
[2018-10-29] MEDS: LACTATED RINGERS 1,000 ML IV SCH (04:37)
[2018-10-29] MEDS: ALBUTEROL/IPRATROPIUM 3 ML NEB RESP TX SCH ×2 (07:43→10:24)
[2018-10-29] MEDS: GABAPENTIN 100 MG CAPSULE PO SCH ×2 (08:32→11:38)
[2018-10-29] MEDS: THIAMINE 100 MG TABLET PO SCH (08:32)
[2018-10-29] MEDS: levETIRAcetam 500 MG TABLET PO SCH (08:32)
[2018-10-29] MEDS: LISINOPRIL 5 MG TABLET PO SCH (08:32)
[2018-10-29] MEDS: ASPIRIN EC 81 MG TABLET PO SCH (08:32)
[2018-10-29] MEDS: TOPIRAMATE 100 MG TABLET PO SCH (08:33)
[2018-10-29] MEDS: MULTIVITAMIN (CENTRUM) TABLET PO SCH (08:33)
[2018-10-29] MEDS: TIMOLOL 0.5% OPH SOLN 5 ML BOTTLE BOTH EYES SCH (08:34)
[2018-10-29] MEDS ORDERED: LEVOFLOXACIN 500 MG TABLET PO SCH (09:00)
[2018-10-29 12:11] VITALS: BP 107/63
== END 2018-10-29 12:32 | disposition home or self-care (01) | DRG 853 ==
LOC: N.ED 07:58 → SUATTDRO 11:21 → N.EDINP 11:21 → N.5E 13:37 → N.CC 15:44 → N.5E 10-24 16:36
PROVIDERS: ADMIT Internal Medicine; ATTEND Internal Medicine

== ENCOUNTER 2018-12-23 09:58 | Observation (INO) ==
[~2018-12-23 09:58] MED LIST: GENTAMICIN INJ 160 MG in SODIUM CHLORIDE 0.9% 100 ML IV ONE; LEVOFLOXACIN 500 MG TABLET PO ONE
[2018-12-23 10:25] LABS: Basophils # 0.1 10*3/uL (0.0-0.2); Basophils % 0.7 % (0.0-0.8); Eosinophils # 0.3 10*3/uL (0.0-0.87); Hematocrit 39.5 VOL% (42.0-52.0); Hemoglobin 13.1 GM/DL (14.0-18.0); Immature Granulocytes % 0.2 %; Immature Granulocytes Absolute 0.02 #; Lymphocytes # 3.1 10*3/uL (1.4-4.0); Lymphocytes % 32.1 % (21.2-54.2); Mean Corpuscular HGB Conc 33.2 GM/DL (32-36); Mean Corpuscular Volume 85.7 FL (87-102); Monocytes % 6.9 % (1.7-12.7); Neutrophils % 57.1 % (38.7-73.9); Platelet Count 222 T/CUMM (130-400); Red Blood Count 4.61 MC/CUMM (3.8-5.5); Red Cell Distribution Width 14.4 % (9.3-17.3); White Blood Count 9.7 T/CUMM (4-12)
[2018-12-23] MEDS ORDERED: LEVOFLOXACIN 500 MG TABLET ONE (10:39)
[2018-12-23] MEDS ORDERED: GENTAMICIN 80 MG/2 ML VIAL ONE (10:39)
[2018-12-23] MEDS ORDERED: DIAZEPAM 5 MG TABLET PO ONE (10:43)
[2018-12-23] MEDS ORDERED: FAMOTIDINE 20 MG TABLET PO ONE (10:43)
[2018-12-23 10:54] LABS: Albumin 4.1 G/DL (3.4-5.0); Bilirubin,Total 0.7 MG/DL (0.2-1.0); Calcium 9.6 MG/DL (8.5-10.1); Total Protein 8.6 G/DL (6.4-8.3)
[2018-12-23 10:55] LABS: Osmolality,Calculated 281.7 MOS/KG (273-304)
[2018-12-23] MEDS ORDERED: FAMOTIDINE 20 MG TABLET ONE (10:58)
[2018-12-23] MEDS ORDERED: DIAZEPAM 5 MG TABLET ONE (10:58)
[2018-12-23] MEDS ORDERED: LACTATED RINGERS 1,000 ML IV SCH (11:00)
[2018-12-23] MEDS ORDERED: ONDANSETRON 4 MG/2 ML VIAL IV PRN (12:41)
[2018-12-23] MEDS ORDERED: HYDROmorphone 2 MG/1 ML VIAL IV PRN (12:41)
[2018-12-23] MEDS ORDERED: PROMETHAZINE 25 MG/1 ML VIAL IM PRN (12:41)
[2018-12-23] MEDS ORDERED: ACETAMINOPHEN 325 MG TABLET PO PRN (12:41)
[2018-12-23] MEDS ORDERED: CETIRIZINE 10 MG TABLET PO PRN (12:43)
[2018-12-23] MEDS: cefTRIAXone 1,000 MG in SYRINGE 1 EACH IV SCH (14:16)
[2018-12-23] MEDS: TOPIRAMATE 100 MG TABLET PO SCH (14:17)
[2018-12-23] MEDS: ALBUTEROL/IPRATROPIUM 3 ML NEB RESP TX SCH ×2 (15:02→19:12)
[2018-12-23] MEDS: SODIUM CHLORIDE 0.9% 1,000 ML IV SCH (15:34)
[2018-12-23] MEDS: GABAPENTIN 100 MG CAPSULE PO SCH (15:37)
[2018-12-23] MEDS ORDERED: SIMVASTATIN 40 MG TABLET PO SCH (21:00)
[2018-12-23] MEDS ORDERED: LATANOPROST 0.005% OPH SOLN 2.5 ML BOTTLE RIGHT EYE SCH (21:00)
[2018-12-23] MEDS ORDERED: GABAPENTIN 100 MG CAPSULE PO SCH (21:00)
[2018-12-23] MEDS ORDERED: traZODone 50 MG TABLET PO SCH (21:00)
[2018-12-23] MEDS: levETIRAcetam 500 MG TABLET PO SCH (21:36)
[2018-12-24] MEDS: SODIUM CHLORIDE 0.9% 1,000 ML IV SCH ×2 (00:23→10:21)
[2018-12-24 04:25] LABS: Basophils # 0.1 10*3/uL (0.0-0.2); Basophils % 0.8 % (0.0-0.8); Eosinophils # 0.3 10*3/uL (0.0-0.87); Eosinophils % 3.7 % (0.00-10.9); Hematocrit 34.7 VOL% (42.0-52.0); Hemoglobin 11.2 GM/DL (14.0-18.0); Immature Granulocytes % 0.3 %; Immature Granulocytes Absolute 0.02 #; Lymphocytes % 39.8 % (21.2-54.2); Mean Corpuscular HGB Conc 32.3 GM/DL (32-36); Mean Corpuscular Volume 88.5 FL (87-102); Mean Platelet Volume 11.3 FL (9.6-12.0); Monocytes % 7.9 % (1.7-12.7); Neutrophils % 47.5 % (38.7-73.9); Platelet Count 167 T/CUMM (130-400); Red Blood Count 3.92 MC/CUMM (3.8-5.5); Red Cell Distribution Width 14.4 % (9.3-17.3); White Blood Count 7.5 T/CUMM (4-12)
[2018-12-24 04:42] LABS: Calcium 8.7 MG/DL (8.5-10.1); Osmolality,Calculated 284.4 MOS/KG (273-304)
[2018-12-24] MEDS: ALBUTEROL/IPRATROPIUM 3 ML NEB RESP TX SCH ×3 (07:17→13:10)
[2018-12-24] MEDS: TOPIRAMATE 100 MG TABLET PO SCH (08:33)
[2018-12-24] MEDS: levETIRAcetam 500 MG TABLET PO SCH (08:33)
[2018-12-24] MEDS: GABAPENTIN 100 MG CAPSULE PO SCH (08:33)
[2018-12-24] MEDS ORDERED: THIAMINE 100 MG TABLET PO SCH (09:00)
[2018-12-24 11:34] VITALS: BP 127/72
[2018-12-24] MEDS: cefTRIAXone 1,000 MG in SYRINGE 1 EACH IV SCH (14:45)
== END 2018-12-24 14:57 | disposition home or self-care (01) ==
LOC: N.5E 09:58 → N.OR 09:58 → N.SDSINP 10:02 → N.5E 13:00
PROVIDERS: ADMIT Surgery; ATTEND Surgery

== ENCOUNTER 2019-01-12 08:55 | Inpatient (IN) ==
[2019-01-12 09:20] LABS: Basophils % 0.6 % (0.0-0.8); Eosinophils # 0.2 10*3/uL (0.0-0.87); Eosinophils % 2.1 % (0.00-10.9); Hematocrit 41.4 VOL% (42.0-52.0); Hemoglobin 13.5 GM/DL (14.0-18.0); Immature Granulocytes % 0.3 %; Immature Granulocytes Absolute 0.02 #; Lymphocytes # 2.6 10*3/uL (1.4-4.0); Lymphocytes % 36.9 % (21.2-54.2); Mean Corpuscular HGB Conc 32.6 GM/DL (32-36); Mean Platelet Volume 11.9 FL (9.6-12.0); Monocytes % 12.5 % (1.7-12.7); Neutrophils % 47.6 % (38.7-73.9); Platelet Count 225 T/CUMM (130-400); Red Blood Count 4.76 MC/CUMM (3.8-5.5); Red Cell Distribution Width 14.3 % (9.3-17.3)
[2019-01-12] MEDS ORDERED: DIAZEPAM 5 MG TABLET PO ONE (09:38)
[2019-01-12] MEDS ORDERED: FAMOTIDINE 20 MG TABLET PO ONE (09:38)
[2019-01-12] MEDS ORDERED: levETIRAcetam 500 MG TABLET PO ONE (09:40)
[2019-01-12] MEDS ORDERED: DIAZEPAM 5 MG TABLET ONE (09:51)
[2019-01-12] MEDS ORDERED: FAMOTIDINE 20 MG TABLET ONE (09:51)
[2019-01-12] MEDS ORDERED: LEVOFLOXACIN 500 MG TABLET ONE (09:52)
[2019-01-12 09:55] LABS: Alanine Aminotransferase 22 U/L (16-61); Albumin 3.9 G/DL (3.4-5.0); Alkaline Phosphatase 121 U/L (45-117); Aspartate Amino Transferase 15 U/L (0-37); Bilirubin,Total < 0.39 MG/DL (0.2-1.0); Blood Urea Nitrogen 54 MG/DL (7-18); Calcium 9.3 MG/DL (8.5-10.1); Estimated Glom Filtration Rate 13 ML/MIN; Glucose 99 MG/DL (74-106); Osmolality,Calculated 278.5 MOS/KG (273-304); Total Protein 8.5 G/DL (6.4-8.3)
[2019-01-12] MEDS ORDERED: LACTATED RINGERS 1,000 ML IV SCH (10:00)
[2019-01-12] MEDS ORDERED: ONDANSETRON 4 MG/2 ML VIAL IV PRN (11:22)
[2019-01-12] MEDS ORDERED: PROMETHAZINE 25 MG/1 ML VIAL IM PRN (11:22)
[2019-01-12] MEDS ORDERED: ACETAMINOPHEN 325 MG TABLET PO PRN (11:22)
[2019-01-12] MEDS ORDERED: CETIRIZINE 10 MG TABLET PO PRN (11:27)
[2019-01-12 11:38] LABS: Apearance,Urine CLOUDY (Clear); Bacteria,Urine Moderate /HPF (Few); Bilirubin,Urine Negative (Negative); Blood, Urine Small mg/dL (Negative); Glucose,Urine (UA) Negative (Negative); Ketones,Urine Negative (Negative); Nitrite,Urine Negative (Negative); Protein,Urine >=500 MG/DL; RBC,Urine 17 /HPF (0-4); Urine Specific Gravity 1.012 (1.001-1.035); Urine Urobilinogen < 2.0 EU/DL (0.2-1.0); WBC,Urine 1632 /HPF (0-6)
[2019-01-12 11:39] LABS: Urine Color Dark yellow (Yellow)
[2019-01-12] MEDS: SODIUM CHLORIDE 0.9% 1,000 ML IV SCH ×2 (14:46→22:01)
[2019-01-12] MEDS: ALBUTEROL/IPRATROPIUM 3 ML NEB RESP TX SCH ×2 (16:12→19:29)
[2019-01-12 16:55] LABS: Vitamin B12 747 PG/ML (211-911)
[2019-01-12] MEDS: cefTRIAXone 1,000 MG in SYRINGE 1 EACH IV SCH (16:56)
[2019-01-12 17:24] LABS: Hepatitis C Virus Ab Quant 1.15 Index
[2019-01-12 20:02] LABS: Protein/Creatinine Ratio,Urine 1.3 RATIO
[2019-01-12] MEDS ORDERED: ACAMPROSATE 333 MG PO SCH (21:00)
[2019-01-12] MEDS: LATANOPROST 0.005% OPH SOLN 2.5 ML BOTTLE RIGHT EYE SCH (22:03)
[2019-01-12] MEDS: levETIRAcetam 500 MG TABLET PO SCH (22:03)
[2019-01-12] MEDS: TOPIRAMATE 100 MG TABLET PO SCH (22:03)
[2019-01-12] MEDS: traZODone 50 MG TABLET PO SCH (22:03)
[2019-01-12] MEDS: SIMVASTATIN 40 MG TABLET PO SCH (22:03)
[2019-01-12] MEDS: GABAPENTIN 100 MG CAPSULE PO SCH ×2 (22:03)
[2019-01-13] MEDS: SODIUM CHLORIDE 0.9% 1,000 ML IV SCH ×3 (06:36→21:10)
[2019-01-13 07:27] LABS: Calcium 8.8 MG/DL (8.5-10.1)
[2019-01-13] MEDS: ALBUTEROL/IPRATROPIUM 3 ML NEB RESP TX SCH ×4 (07:45→22:20)
[2019-01-13 08:40] LABS: Total Protein (Chem) 8.6 G/DL (6.4-8.3)
[2019-01-13] MEDS: FLUCONAZOLE 200 MG TABLET PO SCH (08:42)
[2019-01-13] MEDS: TOPIRAMATE 100 MG TABLET PO SCH ×2 (08:42→21:07)
[2019-01-13] MEDS: MULTIVITAMIN (CENTRUM) TABLET PO SCH (08:42)
[2019-01-13] MEDS: levETIRAcetam 500 MG TABLET PO SCH ×2 (08:42→21:07)
[2019-01-13] MEDS: GABAPENTIN 100 MG CAPSULE PO SCH ×3 (08:43→21:07)
[2019-01-13] MEDS: cefTRIAXone 1,000 MG in SYRINGE 1 EACH IV SCH (08:43)
[2019-01-13] MEDS: THIAMINE 100 MG TABLET PO SCH (08:46)
[2019-01-13] MEDS ORDERED: THIAMINE 100 MG TABLET PO SCH (09:00)
[2019-01-13] MEDS ORDERED: SODIUM POLYSTYRENE SULFATE 15 GM/60 ML BOTTLE PO ONE (10:00)
[2019-01-13 10:40] LABS: Albumin (SPE) 5.1 G/DL (3.2-5.3); Albumin (SPE) Rel % 59.8 %; Alpha 1 (SPE) 0.3 G/DL (0.1-0.4); Alpha 1 (SPE) Rel % 3.1 %; Alpha 2 (SPE) 0.9 G/DL (0.4-1.0); Alpha 2 (SPE) Rel % 10.5 %; Beta (SPE) 0.9 G/DL (0.5-1.1); Beta (SPE) Rel % 10.2 %; Gamma (SPE) 1.4 G/DL (0.7-1.7); Gamma (SPE) Rel % 16.4 %
[2019-01-13] MEDS: SIMVASTATIN 40 MG TABLET PO SCH (21:07)
[2019-01-13] MEDS: traZODone 50 MG TABLET PO SCH (21:07)
[2019-01-13] MEDS: LATANOPROST 0.005% OPH SOLN 2.5 ML BOTTLE RIGHT EYE SCH (21:08)
[2019-01-14 03:00] LABS: Total Protein 24 Hr Ur Result 769 MG/24HR (0-149.1); Total Volume,Urine 4275 ML (400-2000)
[2019-01-14] MEDS: SODIUM CHLORIDE 0.9% 1,000 ML IV SCH ×3 (05:52→21:39)
[2019-01-14 07:06] LABS: Basophils % 0.6 % (0.0-0.8); Eosinophils # 0.1 10*3/uL (0.0-0.87); Eosinophils % 1.7 % (0.00-10.9); Hematocrit 35.1 VOL% (42.0-52.0); Hemoglobin 11.3 GM/DL (14.0-18.0); Immature Granulocytes % 0.3 %; Immature Granulocytes Absolute 0.02 #; Lymphocytes # 2.8 10*3/uL (1.4-4.0); Lymphocytes % 38.8 % (21.2-54.2); Mean Corpuscular HGB Conc 32.2 GM/DL (32-36); Mean Corpuscular Volume 88.4 FL (87-102); Mean Platelet Volume 12.5 FL (9.6-12.0); Monocytes % 9.3 % (1.7-12.7); Neutrophils % 49.3 % (38.7-73.9); Platelet Count 187 T/CUMM (130-400); Red Blood Count 3.97 MC/CUMM (3.8-5.5); Red Cell Distribution Width 13.8 % (9.3-17.3); White Blood Count 7.1 T/CUMM (4-12)
[2019-01-14 07:28] LABS: Calcium 8.5 MG/DL (8.5-10.1); Osmolality,Calculated 282.3 MOS/KG (273-304)
[2019-01-14] MEDS: ALBUTEROL/IPRATROPIUM 3 ML NEB RESP TX SCH ×4 (07:44→19:23)
[2019-01-14 07:46] LABS: 24 Hr Protein (Bench) 769 MG/24HR (0-149.1)
[2019-01-14] MEDS ORDERED: SODIUM POLYSTYRENE SULFATE 15 GM/60 ML BOTTLE PO ONE (09:00)
[2019-01-14 09:48] LABS: Hepatitis B Core IgM Quant 0.05 Index; Hepatitis B Surface Ag Quant 0.37 Index; Hepatitis B Surface Ag Result Negative (Negative); Hepatitis C Virus Ab Quant 1.24 Index
[2019-01-14] MEDS: cefTRIAXone 1,000 MG in SYRINGE 1 EACH IV SCH (10:04)
[2019-01-14] MEDS: MULTIVITAMIN (CENTRUM) TABLET PO SCH (10:05)
[2019-01-14] MEDS: GABAPENTIN 100 MG CAPSULE PO SCH ×3 (10:05→21:41)
[2019-01-14] MEDS: FLUCONAZOLE 200 MG TABLET PO SCH (10:06)
[2019-01-14] MEDS: levETIRAcetam 500 MG TABLET PO SCH ×2 (10:06→21:41)
[2019-01-14] MEDS: TOPIRAMATE 100 MG TABLET PO SCH ×2 (10:06→21:41)
[2019-01-14] MEDS: THIAMINE 100 MG TABLET PO SCH (10:06)
[2019-01-14] MEDS: LATANOPROST 0.005% OPH SOLN 2.5 ML BOTTLE RIGHT EYE SCH (21:40)
[2019-01-14] MEDS: traZODone 50 MG TABLET PO SCH (21:41)
[2019-01-14] MEDS: SIMVASTATIN 40 MG TABLET PO SCH (21:41)
[2019-01-15 06:26] LABS: Basophils % 0.6 % (0.0-0.8); Eosinophils # 0.1 10*3/uL (0.0-0.87); Eosinophils % 2.1 % (0.00-10.9); Hematocrit 34.5 VOL% (42.0-52.0); Hemoglobin 11.2 GM/DL (14.0-18.0); Immature Granulocytes % 0.1 %; Immature Granulocytes Absolute 0.01 #; Lymphocytes # 2.2 10*3/uL (1.4-4.0); Lymphocytes % 31.8 % (21.2-54.2); Mean Corpuscular HGB Conc 32.5 GM/DL (32-36); Mean Corpuscular Volume 87.8 FL (87-102); Mean Platelet Volume 12.5 FL (9.6-12.0); Neutrophils % 56.4 % (38.7-73.9); Platelet Count 194 T/CUMM (130-400); Red Blood Count 3.93 MC/CUMM (3.8-5.5); Red Cell Distribution Width 13.7 % (9.3-17.3); White Blood Count 6.8 T/CUMM (4-12)
[2019-01-15 06:42] LABS: Calcium 8.4 MG/DL (8.5-10.1); Osmolality,Calculated 283.1 MOS/KG (273-304)
[2019-01-15] MEDS: SODIUM CHLORIDE 0.9% 1,000 ML IV SCH ×2 (06:52→13:50)
[2019-01-15] MEDS: ALBUTEROL/IPRATROPIUM 3 ML NEB RESP TX SCH ×2 (07:15→11:04)
[2019-01-15] MEDS: TOPIRAMATE 100 MG TABLET PO SCH (09:00)
[2019-01-15] MEDS: MULTIVITAMIN (CENTRUM) TABLET PO SCH (09:00)
[2019-01-15] MEDS: GABAPENTIN 100 MG CAPSULE PO SCH (09:00)
[2019-01-15] MEDS: levETIRAcetam 500 MG TABLET PO SCH (09:00)
[2019-01-15] MEDS: FLUCONAZOLE 200 MG TABLET PO SCH (09:00)
[2019-01-15] MEDS: THIAMINE 100 MG TABLET PO SCH (09:00)
[2019-01-15] MEDS: cefTRIAXone 1,000 MG in SYRINGE 1 EACH IV SCH (10:41)
[2019-01-15 11:54] VITALS: BP 130/62
== END 2019-01-15 15:47 | disposition home or self-care (01) | DRG 683 ==
LOC: N.OR 08:55 → N.SDSINP 08:58 → N.2E 13:53
PROVIDERS: ADMIT Surgery; ATTEND Surgery

== ENCOUNTER 2019-03-10 10:33 | Inpatient (IN) ==
[2019-03-10 11:22] LABS: Basophils # 0.1 10*3/uL (0.0-0.2); Basophils % 0.3 % (0.0-0.8); Eosinophils # 0.1 10*3/uL (0.0-0.87); Eosinophils % 0.7 % (0.00-10.9); Hematocrit 40.4 VOL% (42.0-52.0); Hemoglobin 13.4 GM/DL (14.0-18.0); Immature Granulocytes % 0.3 %; Immature Granulocytes Absolute 0.05 #; Lymphocytes # 2.4 10*3/uL (1.4-4.0); Lymphocytes % 14.8 % (21.2-54.2); Mean Corpuscular HGB Conc 33.2 GM/DL (32-36); Mean Corpuscular Volume 83.5 FL (87-102); Mean Platelet Volume 11.4 FL (9.6-12.0); Monocytes % 8.9 % (1.7-12.7); Platelet Count 290 T/CUMM (130-400); Red Blood Count 4.84 MC/CUMM (3.8-5.5); Red Cell Distribution Width 14.8 % (9.3-17.3); White Blood Count 16.1 T/CUMM (4-12)
[2019-03-10 11:43] LABS: Alanine Aminotransferase 34 U/L (16-61); Alkaline Phosphatase 89 U/L (45-117); Aspartate Amino Transferase 18 U/L (0-37); Bilirubin,Total < 0.39 MG/DL (0.2-1.0); Blood Urea Nitrogen 11 MG/DL (7-18); Calcium 9.5 MG/DL (8.5-10.1); Estimated Glom Filtration Rate 84 ML/MIN; Glucose 101 MG/DL (74-106); Osmolality,Calculated 273.7 MOS/KG (273-304); Total Protein 8.4 G/DL (6.4-8.3)
[2019-03-10 13:18] LABS: Apearance,Urine CLOUDY (Clear); Bilirubin,Urine Negative (Negative); Blood, Urine Small mg/dL (Negative); Glucose,Urine (UA) Negative (Negative); Ketones,Urine Negative (Negative); Nitrite,Urine Negative (Negative); Protein,Urine 100 MG/DL; RBC,Urine 52 /HPF (0-4); Urine Color Yellow (Yellow); Urine Specific Gravity 1.014 (1.001-1.035); Urine Urobilinogen < 2.0 EU/DL (0.2-1.0); WBC,Urine 2965 /HPF (0-6)
[2019-03-10] MEDS ORDERED: cefTRIAXone 1,000 MG in SODIUM CHLORIDE 0.9% 100 ML IV STA (13:51)
[2019-03-10] MEDS ORDERED: ONDANSETRON 4 MG/2 ML VIAL IV PRN (15:03)
[2019-03-10] MEDS ORDERED: ACETAMINOPHEN 325 MG TABLET PO PRN (15:03)
[2019-03-11 05:18] LABS: Basophils # 0.1 10*3/uL (0.0-0.2); Basophils % 0.5 % (0.0-0.8); Eosinophils # 0.1 10*3/uL (0.0-0.87); Hematocrit 35.5 VOL% (42.0-52.0); Hemoglobin 11.7 GM/DL (14.0-18.0); Immature Granulocytes % 0.2 %; Immature Granulocytes Absolute 0.03 #; Lymphocytes # 2.6 10*3/uL (1.4-4.0); Lymphocytes % 19.9 % (21.2-54.2); Mean Corpuscular Volume 82.9 FL (87-102); Mean Platelet Volume 12.2 FL (9.6-12.0); Monocytes % 8.6 % (1.7-12.7); Neutrophils % 69.8 % (38.7-73.9); Platelet Count 175 T/CUMM (130-400); Red Blood Count 4.28 MC/CUMM (3.8-5.5); Red Cell Distribution Width 14.8 % (9.3-17.3)
[2019-03-11 05:40] LABS: Calcium 9.1 MG/DL (8.5-10.1); Osmolality,Calculated 263.5 MOS/KG (273-304)
[2019-03-11 05:50] LABS: Risk Ratio 2.93; Thyroid Stimulating Hormone 0.685 uIU/ml (0.358-3.74)
[2019-03-11] MEDS: NICOTINE 21 MG/24 HR PATCH TRANSDERM SCH (10:08)
[2019-03-11] MEDS: PANTOPRAZOLE 40 MG TABLET PO SCH (10:08)
[2019-03-11] MEDS: cefTRIAXone 1,000 MG in SYRINGE 1 EACH IV SCH (10:08)
[2019-03-11] MEDS: ENOXAPARIN 40 MG/0.4 ML SYRINGE SUBCUT SCH (10:08)
[2019-03-11] MEDS ORDERED: VANCOMYCIN INJ 750 MG in SODIUM CHLORIDE 0.9% 250 ML IV SCH (14:00)
[2019-03-11] MEDS: VANCOMYCIN INJ 750 MG in SODIUM CHLORIDE 0.9% 250 ML IV SCH (15:47)
[2019-03-12] MEDS: VANCOMYCIN INJ 750 MG in SODIUM CHLORIDE 0.9% 250 ML IV SCH ×2 (01:20→14:23)
[2019-03-12 05:51] LABS: Basophils # 0.1 10*3/uL (0.0-0.2); Basophils % 0.7 % (0.0-0.8); Eosinophils # 0.2 10*3/uL (0.0-0.87); Eosinophils % 1.5 % (0.00-10.9); Hematocrit 41.4 VOL% (42.0-52.0); Hemoglobin 13.5 GM/DL (14.0-18.0); Immature Granulocytes % 0.7 %; Immature Granulocytes Absolute 0.08 #; Lymphocytes # 2.6 10*3/uL (1.4-4.0); Lymphocytes % 22.3 % (21.2-54.2); Mean Corpuscular HGB Conc 32.6 GM/DL (32-36); Mean Corpuscular Volume 84.1 FL (87-102); Mean Platelet Volume 12.5 FL (9.6-12.0); Monocytes % 6.3 % (1.7-12.7); Neutrophils % 68.5 % (38.7-73.9); Platelet Count 205 T/CUMM (130-400); Red Blood Count 4.92 MC/CUMM (3.8-5.5); Red Cell Distribution Width 14.9 % (9.3-17.3); White Blood Count 11.5 T/CUMM (4-12)
[2019-03-12 06:06] LABS: Calcium 9.7 MG/DL (8.5-10.1)
[2019-03-12] MEDS: ENOXAPARIN 40 MG/0.4 ML SYRINGE SUBCUT SCH (09:12)
[2019-03-12] MEDS: PANTOPRAZOLE 40 MG TABLET PO SCH (09:12)
[2019-03-12] MEDS: NICOTINE 21 MG/24 HR PATCH TRANSDERM SCH (09:13)
[2019-03-12] MEDS: cefTRIAXone 1,000 MG in SYRINGE 1 EACH IV SCH (09:13)
[2019-03-12] MEDS ORDERED: CARBOXYMETHYLCELLULOSE 1% OPH SOLN BOTH EYES PRN (17:16)
[2019-03-12] MEDS: ALBUTEROL/IPRATROPIUM 3 ML NEB RESP TX SCH (19:38)
[2019-03-12] MEDS: levETIRAcetam 500 MG TABLET PO SCH (20:22)
[2019-03-12] MEDS: carvediloL 6.25 MG TABLET PO SCH (20:22)
[2019-03-12] MEDS: SIMVASTATIN 20 MG TABLET PO SCH (20:22)
[2019-03-12] MEDS: GABAPENTIN 100 MG CAPSULE PO SCH (20:22)
[2019-03-13] MEDS: VANCOMYCIN INJ 750 MG in SODIUM CHLORIDE 0.9% 250 ML IV SCH (01:10)
[2019-03-13 06:32] LABS: Basophils # 0.1 10*3/uL (0.0-0.2); Basophils % 0.6 % (0.0-0.8); Eosinophils # 0.2 10*3/uL (0.0-0.87); Eosinophils % 1.7 % (0.00-10.9); Hematocrit 38.8 VOL% (42.0-52.0); Hemoglobin 12.6 GM/DL (14.0-18.0); Immature Granulocytes % 0.5 %; Immature Granulocytes Absolute 0.05 #; Lymphocytes # 2.7 10*3/uL (1.4-4.0); Lymphocytes % 26.3 % (21.2-54.2); Mean Corpuscular HGB Conc 32.5 GM/DL (32-36); Mean Corpuscular Volume 83.8 FL (87-102); Mean Platelet Volume 11.2 FL (9.6-12.0); Monocytes % 6.9 % (1.7-12.7); Platelet Count 308 T/CUMM (130-400); Red Blood Count 4.63 MC/CUMM (3.8-5.5); Red Cell Distribution Width 14.8 % (9.3-17.3); White Blood Count 10.3 T/CUMM (4-12)
[2019-03-13 06:57] LABS: Calcium 9.1 MG/DL (8.5-10.1); Osmolality,Calculated 276.5 MOS/KG (273-304)
[2019-03-13] MEDS: ALBUTEROL/IPRATROPIUM 3 ML NEB RESP TX SCH ×4 (07:15→19:35)
[2019-03-13] MEDS: ASPIRIN EC 81 MG TABLET PO SCH (09:24)
[2019-03-13] MEDS: MULTIVITAMIN (CENTRUM) TABLET PO SCH (09:24)
[2019-03-13] MEDS: carvediloL 6.25 MG TABLET PO SCH ×2 (09:24→20:27)
[2019-03-13] MEDS: levETIRAcetam 500 MG TABLET PO SCH ×2 (09:24→20:27)
[2019-03-13] MEDS: THIAMINE 100 MG TABLET PO SCH (09:24)
[2019-03-13] MEDS: PANTOPRAZOLE 40 MG TABLET PO SCH (09:25)
[2019-03-13] MEDS: cefTRIAXone 1,000 MG in SYRINGE 1 EACH IV SCH (09:25)
[2019-03-13] MEDS: NICOTINE 21 MG/24 HR PATCH TRANSDERM SCH (09:25)
[2019-03-13] MEDS: CETIRIZINE 10 MG TABLET PO SCH (09:25)
[2019-03-13] MEDS: ENOXAPARIN 40 MG/0.4 ML SYRINGE SUBCUT SCH (09:25)
[2019-03-13] MEDS: LISINOPRIL/HCTZ 10-12.5 MG TABLET PO SCH (09:25)
[2019-03-13] MEDS: GABAPENTIN 100 MG CAPSULE PO SCH (20:27)
[2019-03-13] MEDS: SIMVASTATIN 20 MG TABLET PO SCH (20:27)
[2019-03-14] MEDS: ALBUTEROL/IPRATROPIUM 3 ML NEB RESP TX SCH ×2 (07:50→11:09)
[2019-03-14] MEDS: CETIRIZINE 10 MG TABLET PO SCH (09:00)
[2019-03-14] MEDS: MULTIVITAMIN (CENTRUM) TABLET PO SCH (09:00)
[2019-03-14] MEDS: PANTOPRAZOLE 40 MG TABLET PO SCH (09:01)
[2019-03-14] MEDS: ASPIRIN EC 81 MG TABLET PO SCH (09:01)
[2019-03-14] MEDS: cefTRIAXone 1,000 MG in SYRINGE 1 EACH IV SCH (09:01)
[2019-03-14] MEDS: LISINOPRIL/HCTZ 10-12.5 MG TABLET PO SCH (09:01)
[2019-03-14] MEDS: carvediloL 6.25 MG TABLET PO SCH (09:01)
[2019-03-14] MEDS: THIAMINE 100 MG TABLET PO SCH (09:01)
[2019-03-14] MEDS: levETIRAcetam 500 MG TABLET PO SCH (09:01)
[2019-03-14] MEDS: ENOXAPARIN 40 MG/0.4 ML SYRINGE SUBCUT SCH (09:02)
[2019-03-14 10:04] VITALS: BP 106/56
[2019-03-14] MEDS: NICOTINE 21 MG/24 HR PATCH TRANSDERM SCH (11:02)
== END 2019-03-14 12:14 | disposition home health service (06) | DRG 699 ==
LOC: N.ED 10:33 → N.EDINP 14:58 → N.5E 16:38
PROVIDERS: ADMIT Internal Medicine; ATTEND Internal Medicine

== ENCOUNTER 2020-09-22 09:18 | Inpatient (IN) ==
[2020-09-22] MEDS ORDERED: ACETAMINOPHEN 500 MG TABLET PO STA (10:09)
[2020-09-22] MEDS ORDERED: SODIUM CHLORIDE 0.9% 1,000 ML IV STA (10:09)
[2020-09-22 10:18] LABS: Basophils # 0.1 10*3/uL (0.0-0.2); Basophils % 0.3 % (0.0-0.8); Hemoglobin 13.9 GM/DL (14.0-18.0); Immature Granulocytes % 1.1 %; Immature Granulocytes Absolute 0.24 #; Lymphocytes # 0.6 10*3/uL (1.4-4.0); Lymphocytes % 2.8 % (21.2-54.2); Mean Corpuscular HGB Conc 33.1 GM/DL (32-36); Mean Corpuscular Volume 88.2 FL (87-102); Mean Platelet Volume 12.2 FL (9.6-12.0); Monocytes % 4.3 % (1.7-12.7); Neutrophils % 91.5 % (38.7-73.9); Platelet Count 154 T/CUMM (130-400); Red Blood Count 4.76 MC/CUMM (3.8-5.5); Red Cell Distribution Width 15.5 % (9.3-17.3); White Blood Count 22.2 T/CUMM (4-12)
[2020-09-22 10:26] LABS: INR 1.1; PT Patient Result 12.4 SECS (10.5-12.0)
[2020-09-22 10:47] LABS: Band Neutrophils 5 % (0-10); Hypochromasia 1+; Lymphocytes 3 % (20-55); Metamyelocytes 1 %; Polychromasia Slight; Segmented Neutrophils 88 % (50-85); Total Cells Counted 100
[2020-09-22 10:48] LABS: Microcytosis 1+; Platelet Estimate Adequate
[2020-09-22 10:54] LABS: Alanine Aminotransferase 17 U/L (16-61); Alkaline Phosphatase 93 U/L (45-117); Aspartate Amino Transferase 26 U/L (0-37); Blood Urea Nitrogen 15 MG/DL (7-18); Calcium 8.5 MG/DL (8.5-10.1); Carbon Dioxide 22 MMOL/L (21-32); Estimated Glom Filtration Rate 88 ML/MIN; Glucose 111 MG/DL (74-106); Osmolality,Calculated 282.3 MOS/KG (273-304); Potassium 3.4 MMOL/L (3.5-5.1); Sodium 141 MMOL/L (136-145); Total Protein 7.4 G/DL (6.4-8.2)
[2020-09-22 10:55] LABS: Bilirubin,Urine Negative (Negative); Blood, Urine 2+ mg/dL (Negative); Glucose,Urine (UA) Negative (Negative); Ketones,Urine Negative (Negative); Nitrite,Urine Positive (Negative); Protein,Urine 3+ MG/DL; RBC,Urine TNTC /HPF (0-4); Urine Appearance Turbid (Clear); Urine Color Amber (Yellow); Urine Urobilinogen < 2.0 EU/DL (0.2-1.0)
[2020-09-22 10:56] LABS: Bacteria,Urine 4+ /HPF (Few)
[2020-09-22] MEDS ORDERED: PIPERACILLIN/TAZOBACTAM 3,375 MG in SODIUM CHLORIDE 0.9% 100 ML IV STA (12:25)
[2020-09-22] MEDS ORDERED: ONDANSETRON 4 MG/2 ML VIAL IV PRN (12:57)
[2020-09-22] MEDS ORDERED: DEXTROSE 50% 25 GM/50 ML VIAL IV PRN (12:57)
[2020-09-22] MEDS ORDERED: ACETAMINOPHEN 325 MG TABLET PO PRN (12:57)
[2020-09-22] MEDS ORDERED: GLUCAGON 1 MG VIAL IM PRN (12:57)
[2020-09-22] MEDS ORDERED: LORazepam 2 MG/1 ML VIAL IV PRN (13:06)
[2020-09-22] MEDS ORDERED: NICOTINE 21 MG/24 HR PATCH TRANSDERM PRN (13:07)
[2020-09-22] MEDS ORDERED: levETIRAcetam 500 MG/5 ML VIAL IV ONE (13:46)
[2020-09-22] MEDS: SODIUM CHLORIDE 0.9% 1,000 ML IV SCH (13:50)
[2020-09-22] MEDS: ENOXAPARIN 40 MG/0.4 ML SYRINGE SUBCUT SCH (13:55)
[2020-09-22] MEDS ORDERED: SODIUM CHLORIDE 0.9% 650 ML IV ONE (15:03)
[2020-09-22] MEDS ORDERED: MORPHINE 2 MG/1 ML SYRINGE IM ONE (18:07)
[2020-09-22] MEDS ORDERED: MORPHINE 2 MG/1 ML SYRINGE IV ONE (18:07)
[2020-09-22] MEDS ORDERED: LABETALOL 20 MG/4 ML SYRINGE IV PRN (18:16)
[2020-09-22 18:51] LABS: Calcium 8.7 MG/DL (8.5-10.1); Osmolality,Calculated 281.4 MOS/KG (273-304); Potassium 4.4 MMOL/L (3.5-5.1)
[2020-09-22] MEDS: PIPERACILLIN/TAZOBACTAM 3,375 MG in SODIUM CHLORIDE 0.9% 100 ML IV SCH (20:38)
[2020-09-23] MEDS: PIPERACILLIN/TAZOBACTAM 3,375 MG in SODIUM CHLORIDE 0.9% 100 ML IV SCH ×3 (04:46→21:11)
[2020-09-23 05:44] LABS: Basophils # 0.1 10*3/uL (0.0-0.2); Basophils % 0.4 % (0.0-0.8); Eosinophils % 0.2 % (0.00-10.9); Hematocrit 37.7 VOL% (42.0-52.0); Hemoglobin 12.8 GM/DL (14.0-18.0); Lymphocytes # 1.9 10*3/uL (1.4-4.0); Lymphocytes % 9.6 % (21.2-54.2); Mean Corpuscular Volume 87.7 FL (87-102); Mean Platelet Volume 12.1 FL (9.6-12.0); Neutrophils % 80.8 % (38.7-73.9); Platelet Count 135 T/CUMM (130-400); Red Cell Distribution Width 15.7 % (9.3-17.3); White Blood Count 19.9 T/CUMM (4-12)
[2020-09-23 06:19] LABS: Calcium 8.1 MG/DL (8.5-10.1); Potassium 3.9 MMOL/L (3.5-5.1)
[2020-09-23] MEDS: SODIUM CHLORIDE 0.9% 1,000 ML IV SCH ×3 (06:53→18:24)
[2020-09-23] MEDS: TOPIRAMATE 100 MG TABLET PO SCH ×2 (09:21→21:11)
[2020-09-23] MEDS: levETIRAcetam 500 MG TABLET PO SCH ×2 (09:21→21:11)
[2020-09-23] MEDS ORDERED: lisinopriL 10 MG TABLET PO SCH (11:30)
[2020-09-23] MEDS: ASPIRIN EC 81 MG TABLET PO SCH (12:39)
[2020-09-23] MEDS: hydroCHLOROthiazide 12.5 MG CAPSULE PO SCH (12:39)
[2020-09-23] MEDS: lisinopriL 10 MG TABLET PO SCH (12:40)
[2020-09-23] MEDS: carvediloL 3.125 MG TABLET PO SCH ×2 (12:40→16:58)
[2020-09-23] MEDS: ENOXAPARIN 40 MG/0.4 ML SYRINGE SUBCUT SCH (12:43)
[2020-09-23] MEDS: ALBUTEROL/IPRATROPIUM 3 ML NEB RESP TX SCH ×2 (13:49→19:36)
[2020-09-23] MEDS: POLYETHYLENE GLYCOL POWDER 17 GM PACK PO SCH (21:11)
[2020-09-23] MEDS: DOCUSATE SODIUM 100 MG CAPSULE PO SCH (21:11)
[2020-09-23] MEDS: DONEPEZIL 10 MG TABLET PO SCH (21:11)
[2020-09-23] MEDS: CHOLECALCIFEROL 1,000 UNIT TABLET PO SCH (21:11)
[2020-09-23] MEDS: GABAPENTIN 100 MG CAPSULE PO SCH (21:11)
[2020-09-23] MEDS: ATORVASTATIN 20 MG TABLET PO SCH (21:11)
[2020-09-24] MEDS: ALBUTEROL/IPRATROPIUM 3 ML NEB RESP TX SCH ×4 (00:12→20:48)
[2020-09-24] MEDS: PIPERACILLIN/TAZOBACTAM 3,375 MG in SODIUM CHLORIDE 0.9% 100 ML IV SCH ×3 (03:20→21:20)
[2020-09-24 07:08] LABS: Basophils % 0.3 % (0.0-0.8); Eosinophils # 0.1 10*3/uL (0.0-0.87); Eosinophils % 0.7 % (0.00-10.9); Hematocrit 38.1 VOL% (42.0-52.0); Hemoglobin 12.9 GM/DL (14.0-18.0); Immature Granulocytes % 0.3 %; Immature Granulocytes Absolute 0.04 #; Lymphocytes # 1.2 10*3/uL (1.4-4.0); Lymphocytes % 10.4 % (21.2-54.2); Mean Corpuscular HGB Conc 33.9 GM/DL (32-36); Mean Corpuscular Volume 87.2 FL (87-102); Mean Platelet Volume 12.3 FL (9.6-12.0); Neutrophils % 77.3 % (38.7-73.9); Platelet Count 140 T/CUMM (130-400); Red Blood Count 4.37 MC/CUMM (3.8-5.5); Red Cell Distribution Width 15.5 % (9.3-17.3); White Blood Count 11.8 T/CUMM (4-12)
[2020-09-24 07:23] LABS: Calcium 8.7 MG/DL (8.5-10.1); Osmolality,Calculated 278.4 MOS/KG (273-304); Potassium 3.4 MMOL/L (3.5-5.1)
[2020-09-24] MEDS: DOCUSATE SODIUM 100 MG CAPSULE PO SCH ×2 (09:30→21:16)
[2020-09-24] MEDS: lisinopriL 10 MG TABLET PO SCH (09:30)
[2020-09-24] MEDS: hydroCHLOROthiazide 12.5 MG CAPSULE PO SCH (09:30)
[2020-09-24] MEDS: THIAMINE 100 MG TABLET PO SCH (09:30)
[2020-09-24] MEDS: carvediloL 3.125 MG TABLET PO SCH ×2 (09:30→18:37)
[2020-09-24] MEDS: FOLIC ACID 1 MG TABLET PO SCH (09:30)
[2020-09-24] MEDS: TOPIRAMATE 100 MG TABLET PO SCH ×2 (09:30→21:16)
[2020-09-24] MEDS: CHOLECALCIFEROL 1,000 UNIT TABLET PO SCH ×2 (09:30→21:17)
[2020-09-24] MEDS: SERTRALINE 50 MG TABLET PO SCH (09:30)
[2020-09-24] MEDS: ASPIRIN EC 81 MG TABLET PO SCH (09:30)
[2020-09-24] MEDS: levETIRAcetam 500 MG TABLET PO SCH ×2 (09:31→21:16)
[2020-09-24] MEDS: POLYETHYLENE GLYCOL POWDER 17 GM PACK PO SCH ×2 (09:32→21:16)
[2020-09-24] MEDS: SODIUM CHLORIDE 0.9% 1,000 ML IV SCH ×3 (13:05→17:18)
[2020-09-24] MEDS: ENOXAPARIN 40 MG/0.4 ML SYRINGE SUBCUT SCH (13:12)
[2020-09-24] MEDS: DONEPEZIL 10 MG TABLET PO SCH (21:16)
[2020-09-24] MEDS: GABAPENTIN 100 MG CAPSULE PO SCH (21:17)
[2020-09-24] MEDS: ATORVASTATIN 20 MG TABLET PO SCH (21:17)
[2020-09-25] MEDS: ALBUTEROL/IPRATROPIUM 3 ML NEB RESP TX SCH ×4 (00:44→19:46)
[2020-09-25] MEDS: SODIUM CHLORIDE 0.9% 1,000 ML IV SCH ×3 (02:50→22:38)
[2020-09-25] MEDS: PIPERACILLIN/TAZOBACTAM 3,375 MG in SODIUM CHLORIDE 0.9% 100 ML IV SCH ×2 (04:50→12:27)
[2020-09-25 06:09] LABS: Basophils % 0.4 % (0.0-0.8); Eosinophils % 0.3 % (0.00-10.9); Hematocrit 40.8 VOL% (42.0-52.0); Immature Granulocytes % 0.5 %; Immature Granulocytes Absolute 0.05 #; Lymphocytes # 1.4 10*3/uL (1.4-4.0); Lymphocytes % 15.1 % (21.2-54.2); Mean Corpuscular HGB Conc 34.3 GM/DL (32-36); Mean Corpuscular Volume 86.6 FL (87-102); Mean Platelet Volume 12.6 FL (9.6-12.0); Monocytes % 12.6 % (1.7-12.7); Neutrophils % 71.1 % (38.7-73.9); Platelet Count 150 T/CUMM (130-400); Red Blood Count 4.71 MC/CUMM (3.8-5.5); Red Cell Distribution Width 15.1 % (9.3-17.3); White Blood Count 9.4 T/CUMM (4-12)
[2020-09-25 06:38] LABS: Calcium 8.6 MG/DL (8.5-10.1); Osmolality,Calculated 273.7 MOS/KG (273-304); Potassium 3.6 MMOL/L (3.5-5.1)
[2020-09-25 07:10] LABS: Platelet Estimate Normal
[2020-09-25 07:11] LABS: Anisocytosis Slight
[2020-09-25] MEDS: TOPIRAMATE 100 MG TABLET PO SCH ×2 (09:46→22:12)
[2020-09-25] MEDS: carvediloL 3.125 MG TABLET PO SCH ×2 (09:46→17:12)
[2020-09-25] MEDS: ASPIRIN EC 81 MG TABLET PO SCH (09:47)
[2020-09-25] MEDS: DOCUSATE SODIUM 100 MG CAPSULE PO SCH ×2 (09:47→22:12)
[2020-09-25] MEDS: CHOLECALCIFEROL 1,000 UNIT TABLET PO SCH ×2 (09:47→22:12)
[2020-09-25] MEDS: THIAMINE 100 MG TABLET PO SCH (09:48)
[2020-09-25] MEDS: SODIUM BICARBONATE 650 MG TABLET PO SCH ×2 (09:48→22:12)
[2020-09-25] MEDS: SERTRALINE 50 MG TABLET PO SCH (09:48)
[2020-09-25] MEDS: levETIRAcetam 500 MG TABLET PO SCH ×2 (09:48→22:12)
[2020-09-25] MEDS: hydroCHLOROthiazide 12.5 MG CAPSULE PO SCH (09:49)
[2020-09-25] MEDS: lisinopriL 10 MG TABLET PO SCH (09:49)
[2020-09-25] MEDS: POLYETHYLENE GLYCOL POWDER 17 GM PACK PO SCH ×2 (09:56→22:12)
[2020-09-25] MEDS: FOLIC ACID 1 MG TABLET PO SCH (12:27)
[2020-09-25] MEDS: ENOXAPARIN 40 MG/0.4 ML SYRINGE SUBCUT SCH (12:27)
[2020-09-25] MEDS ORDERED: AZITHROMYCIN 250 MG TABLET PO ONE (13:18)
[2020-09-25] MEDS: cefTRIAXone 1,000 MG in SODIUM CHLORIDE 0.9% 100 ML IV SCH (14:14)
[2020-09-25] MEDS: GABAPENTIN 100 MG CAPSULE PO SCH (22:12)
[2020-09-25] MEDS: ATORVASTATIN 20 MG TABLET PO SCH (22:12)
[2020-09-26] MEDS: ALBUTEROL/IPRATROPIUM 3 ML NEB RESP TX SCH ×4 (00:39→19:45)
[2020-09-26 05:43] LABS: Basophils % 0.5 % (0.0-0.8); Eosinophils # 0.1 10*3/uL (0.0-0.87); Eosinophils % 0.7 % (0.00-10.9); Hematocrit 41.1 VOL% (42.0-52.0); Hemoglobin 13.9 GM/DL (14.0-18.0); Immature Granulocytes % 0.5 %; Immature Granulocytes Absolute 0.04 #; Lymphocytes # 1.8 10*3/uL (1.4-4.0); Lymphocytes % 20.9 % (21.2-54.2); Mean Corpuscular HGB Conc 33.8 GM/DL (32-36); Mean Corpuscular Volume 87.3 FL (87-102); Monocytes % 12.9 % (1.7-12.7); Neutrophils % 64.5 % (38.7-73.9); Platelet Count 196 T/CUMM (130-400); Red Blood Count 4.71 MC/CUMM (3.8-5.5); Red Cell Distribution Width 14.9 % (9.3-17.3); White Blood Count 8.5 T/CUMM (4-12)
[2020-09-26 06:04] LABS: Calcium 8.5 MG/DL (8.5-10.1); Osmolality,Calculated 276.4 MOS/KG (273-304); Potassium 3.7 MMOL/L (3.5-5.1)
[2020-09-26] MEDS: SODIUM CHLORIDE 0.9% 1,000 ML IV SCH (06:27)
[2020-09-26] MEDS: SODIUM BICARBONATE 650 MG TABLET PO SCH ×2 (08:18→21:38)
[2020-09-26] MEDS: FOLIC ACID 1 MG TABLET PO SCH (08:18)
[2020-09-26] MEDS: AZITHROMYCIN 250 MG TABLET PO SCH (08:18)
[2020-09-26] MEDS: lisinopriL 10 MG TABLET PO SCH (08:19)
[2020-09-26] MEDS: CHOLECALCIFEROL 1,000 UNIT TABLET PO SCH ×2 (08:19→21:37)
[2020-09-26] MEDS: SERTRALINE 50 MG TABLET PO SCH (08:19)
[2020-09-26] MEDS: ASPIRIN EC 81 MG TABLET PO SCH (08:19)
[2020-09-26] MEDS: carvediloL 3.125 MG TABLET PO SCH ×2 (08:19→16:04)
[2020-09-26] MEDS: hydroCHLOROthiazide 12.5 MG CAPSULE PO SCH (08:19)
[2020-09-26] MEDS: levETIRAcetam 500 MG TABLET PO SCH ×2 (08:19→21:37)
[2020-09-26] MEDS: DOCUSATE SODIUM 100 MG CAPSULE PO SCH ×2 (08:19→21:37)
[2020-09-26] MEDS: THIAMINE 100 MG TABLET PO SCH (08:19)
[2020-09-26] MEDS: POLYETHYLENE GLYCOL POWDER 17 GM PACK PO SCH ×2 (08:20→21:37)
[2020-09-26] MEDS: TOPIRAMATE 100 MG TABLET PO SCH ×2 (08:20→21:38)
[2020-09-26] MEDS: cefTRIAXone 1,000 MG in SODIUM CHLORIDE 0.9% 100 ML IV SCH (16:04)
[2020-09-26] MEDS: ENOXAPARIN 40 MG/0.4 ML SYRINGE SUBCUT SCH (16:04)
[2020-09-26] MEDS: VANCOMYCIN INJ 1,750 MG in SODIUM CHLORIDE 0.9% 500 ML IV SCH (16:51)
[2020-09-26] MEDS: GABAPENTIN 100 MG CAPSULE PO SCH (21:37)
[2020-09-26] MEDS: ATORVASTATIN 20 MG TABLET PO SCH (21:37)
[2020-09-27] MEDS: VANCOMYCIN INJ 1,750 MG in SODIUM CHLORIDE 0.9% 500 ML IV SCH ×2 (01:39→12:40)
[2020-09-27] MEDS: ALBUTEROL/IPRATROPIUM 3 ML NEB RESP TX SCH ×4 (02:13→19:03)
[2020-09-27 06:35] LABS: Basophils # 0.1 10*3/uL (0.0-0.2); Basophils % 0.5 % (0.0-0.8); Eosinophils # 0.1 10*3/uL (0.0-0.87); Hematocrit 39.1 VOL% (42.0-52.0); Hemoglobin 13.1 GM/DL (14.0-18.0); Immature Granulocytes % 0.4 %; Immature Granulocytes Absolute 0.04 #; Lymphocytes # 1.7 10*3/uL (1.4-4.0); Lymphocytes % 17.2 % (21.2-54.2); Mean Corpuscular HGB Conc 33.5 GM/DL (32-36); Mean Corpuscular Volume 87.5 FL (87-102); Mean Platelet Volume 12.4 FL (9.6-12.0); Monocytes % 10.5 % (1.7-12.7); Neutrophils % 70.4 % (38.7-73.9); Platelet Count 218 T/CUMM (130-400); Red Blood Count 4.47 MC/CUMM (3.8-5.5); White Blood Count 9.8 T/CUMM (4-12)
[2020-09-27 07:05] LABS: Calcium 8.3 MG/DL (8.5-10.1); Osmolality,Calculated 274.5 MOS/KG (273-304); Potassium 3.4 MMOL/L (3.5-5.1)
[2020-09-27] MEDS: carvediloL 3.125 MG TABLET PO SCH ×2 (08:50→17:34)
[2020-09-27] MEDS: lisinopriL 10 MG TABLET PO SCH (08:50)
[2020-09-27] MEDS: SERTRALINE 50 MG TABLET PO SCH (08:50)
[2020-09-27] MEDS: FOLIC ACID 1 MG TABLET PO SCH (08:50)
[2020-09-27] MEDS: ASPIRIN EC 81 MG TABLET PO SCH (08:50)
[2020-09-27] MEDS: hydroCHLOROthiazide 12.5 MG CAPSULE PO SCH (08:51)
[2020-09-27] MEDS: TOPIRAMATE 100 MG TABLET PO SCH ×2 (08:51→22:32)
[2020-09-27] MEDS: THIAMINE 100 MG TABLET PO SCH (08:51)
[2020-09-27] MEDS: POLYETHYLENE GLYCOL POWDER 17 GM PACK PO SCH ×2 (08:51→22:33)
[2020-09-27] MEDS: DOCUSATE SODIUM 100 MG CAPSULE PO SCH ×2 (08:51→22:32)
[2020-09-27] MEDS: SODIUM BICARBONATE 650 MG TABLET PO SCH ×2 (08:51→22:33)
[2020-09-27] MEDS: CHOLECALCIFEROL 1,000 UNIT TABLET PO SCH ×2 (08:51→22:32)
[2020-09-27] MEDS: AZITHROMYCIN 250 MG TABLET PO SCH (08:51)
[2020-09-27] MEDS: levETIRAcetam 500 MG TABLET PO SCH ×2 (08:51→22:33)
[2020-09-27] MEDS: SODIUM CHLORIDE 0.9% 1,000 ML IV SCH (08:52)
[2020-09-27] MEDS: cefTRIAXone 1,000 MG in SODIUM CHLORIDE 0.9% 100 ML IV SCH (14:51)
[2020-09-27] MEDS: POTASSIUM CHLORIDE RIDER 10 MEQ/100 ML PREMIX IV PRN (17:33)
[2020-09-27] MEDS: ATORVASTATIN 20 MG TABLET PO SCH (22:32)
[2020-09-27] MEDS: GABAPENTIN 100 MG CAPSULE PO SCH (22:32)
[2020-09-27] MEDS: ENOXAPARIN 40 MG/0.4 ML SYRINGE SUBCUT SCH (22:35)
[2020-09-28] MEDS: ALBUTEROL/IPRATROPIUM 3 ML NEB RESP TX SCH ×4 (01:08→20:17)
[2020-09-28] MEDS: VANCOMYCIN INJ 1,750 MG in SODIUM CHLORIDE 0.9% 500 ML IV SCH ×2 (01:09→12:55)
[2020-09-28] MEDS: SODIUM CHLORIDE 0.9% 1,000 ML IV SCH ×2 (02:00→20:48)
[2020-09-28 05:27] LABS: Basophils # 0.1 10*3/uL (0.0-0.2); Basophils % 0.4 % (0.0-0.8); Eosinophils # 0.1 10*3/uL (0.0-0.87); Eosinophils % 0.8 % (0.00-10.9); Hematocrit 36.9 VOL% (42.0-52.0); Hemoglobin 12.3 GM/DL (14.0-18.0); Immature Granulocytes % 0.5 %; Immature Granulocytes Absolute 0.06 #; Lymphocytes # 2.5 10*3/uL (1.4-4.0); Lymphocytes % 21.8 % (21.2-54.2); Mean Corpuscular HGB Conc 33.3 GM/DL (32-36); Mean Corpuscular Volume 87.2 FL (87-102); Mean Platelet Volume 11.8 FL (9.6-12.0); Monocytes % 11.8 % (1.7-12.7); Neutrophils % 64.7 % (38.7-73.9); Platelet Count 247 T/CUMM (130-400); Red Blood Count 4.23 MC/CUMM (3.8-5.5); Red Cell Distribution Width 14.9 % (9.3-17.3); White Blood Count 11.7 T/CUMM (4-12)
[2020-09-28 06:13] LABS: Albumin 2.6 G/DL (3.4-5.0); Bilirubin,Total 0.4 MG/DL (0.20-1.00); Calcium 8.9 MG/DL (8.5-10.1); Osmolality,Calculated 274.5 MOS/KG (273-304); Potassium 3.3 MMOL/L (3.5-5.1); Total Protein 6.8 G/DL (6.4-8.2)
[2020-09-28] MEDS ORDERED: POTASSIUM CHLORIDE RIDER 20 MEQ/100 ML PREMIX IV PRN (06:16)
[2020-09-28] MEDS: POTASSIUM CHLORIDE RIDER 10 MEQ/100 ML PREMIX IV PRN ×4 (06:29→17:49)
[2020-09-28] MEDS: carvediloL 3.125 MG TABLET PO SCH ×2 (08:58→17:49)
[2020-09-28] MEDS: FOLIC ACID 1 MG TABLET PO SCH (08:58)
[2020-09-28] MEDS: DOCUSATE SODIUM 100 MG CAPSULE PO SCH ×2 (08:58→20:41)
[2020-09-28] MEDS: lisinopriL 10 MG TABLET PO SCH (08:58)
[2020-09-28] MEDS: TOPIRAMATE 100 MG TABLET PO SCH ×2 (08:58→20:41)
[2020-09-28] MEDS: THIAMINE 100 MG TABLET PO SCH (08:58)
[2020-09-28] MEDS: ASPIRIN EC 81 MG TABLET PO SCH (08:58)
[2020-09-28] MEDS: levETIRAcetam 500 MG TABLET PO SCH ×2 (08:58→20:41)
[2020-09-28] MEDS: hydroCHLOROthiazide 12.5 MG CAPSULE PO SCH (08:58)
[2020-09-28] MEDS: SERTRALINE 50 MG TABLET PO SCH (08:58)
[2020-09-28] MEDS: AZITHROMYCIN 250 MG TABLET PO SCH (08:58)
[2020-09-28] MEDS: CHOLECALCIFEROL 1,000 UNIT TABLET PO SCH ×2 (08:59→20:42)
[2020-09-28] MEDS: POLYETHYLENE GLYCOL POWDER 17 GM PACK PO SCH ×3 (08:59→20:47)
[2020-09-28] MEDS: SODIUM BICARBONATE 650 MG TABLET PO SCH ×2 (08:59→20:42)
[2020-09-28] MEDS: cefTRIAXone 1,000 MG in SODIUM CHLORIDE 0.9% 100 ML IV SCH (14:26)
[2020-09-28] MEDS: ATORVASTATIN 20 MG TABLET PO SCH (20:42)
[2020-09-28] MEDS: ENOXAPARIN 40 MG/0.4 ML SYRINGE SUBCUT SCH (20:47)
[2020-09-28] MEDS: GABAPENTIN 100 MG CAPSULE PO SCH (20:47)
[2020-09-29] MEDS: ALBUTEROL/IPRATROPIUM 3 ML NEB RESP TX SCH ×4 (00:27→20:10)
[2020-09-29] MEDS: SODIUM CHLORIDE 0.9% 1,000 ML IV SCH ×2 (06:46→16:33)
[2020-09-29 07:16] LABS: Basophils # 0.1 10*3/uL (0.0-0.2); Basophils % 0.6 % (0.0-0.8); Eosinophils # 0.1 10*3/uL (0.0-0.87); Eosinophils % 1.1 % (0.00-10.9); Hematocrit 38.2 VOL% (42.0-52.0); Hemoglobin 12.6 GM/DL (14.0-18.0); Immature Granulocytes % 0.6 %; Immature Granulocytes Absolute 0.07 #; Lymphocytes # 2.7 10*3/uL (1.4-4.0); Lymphocytes % 24.4 % (21.2-54.2); Mean Platelet Volume 12.1 FL (9.6-12.0); Neutrophils % 63.3 % (38.7-73.9); Platelet Count 264 T/CUMM (130-400); Red Blood Count 4.39 MC/CUMM (3.8-5.5); Red Cell Distribution Width 14.9 % (9.3-17.3); White Blood Count 11.1 T/CUMM (4-12)
[2020-09-29 07:46] LABS: Calcium 8.5 MG/DL (8.5-10.1); Osmolality,Calculated 271.7 MOS/KG (273-304); Potassium 3.6 MMOL/L (3.5-5.1)
[2020-09-29] MEDS: hydroCHLOROthiazide 12.5 MG CAPSULE PO SCH (09:20)
[2020-09-29] MEDS: lisinopriL 10 MG TABLET PO SCH (09:20)
[2020-09-29] MEDS: ASPIRIN EC 81 MG TABLET PO SCH (09:20)
[2020-09-29] MEDS: SERTRALINE 50 MG TABLET PO SCH (09:20)
[2020-09-29] MEDS: DOCUSATE SODIUM 100 MG CAPSULE PO SCH ×2 (09:20→20:49)
[2020-09-29] MEDS: AZITHROMYCIN 250 MG TABLET PO SCH (09:20)
[2020-09-29] MEDS: levETIRAcetam 500 MG TABLET PO SCH ×2 (09:21→20:49)
[2020-09-29] MEDS: THIAMINE 100 MG TABLET PO SCH (09:21)
[2020-09-29] MEDS: FOLIC ACID 1 MG TABLET PO SCH (09:21)
[2020-09-29] MEDS: TOPIRAMATE 100 MG TABLET PO SCH ×2 (09:21→20:49)
[2020-09-29] MEDS: carvediloL 3.125 MG TABLET PO SCH ×2 (09:21→16:33)
[2020-09-29] MEDS: SODIUM BICARBONATE 650 MG TABLET PO SCH ×2 (09:21→20:49)
[2020-09-29] MEDS: CHOLECALCIFEROL 1,000 UNIT TABLET PO SCH ×2 (09:21→20:48)
[2020-09-29] MEDS: POLYETHYLENE GLYCOL POWDER 17 GM PACK PO SCH ×2 (10:38→20:50)
[2020-09-29] MEDS: cefTRIAXone 1,000 MG in SODIUM CHLORIDE 0.9% 100 ML IV SCH (15:03)
[2020-09-29] MEDS: GABAPENTIN 100 MG CAPSULE PO SCH (20:49)
[2020-09-29] MEDS: ENOXAPARIN 40 MG/0.4 ML SYRINGE SUBCUT SCH (20:50)
[2020-09-30] MEDS: ALBUTEROL/IPRATROPIUM 3 ML NEB RESP TX SCH ×2 (00:31→07:18)
[2020-09-30] MEDS: SODIUM CHLORIDE 0.9% 1,000 ML IV SCH (02:20)
[2020-09-30 06:14] LABS: Alanine Aminotransferase 54 U/L (16-61); Albumin 2.7 G/DL (3.4-5.0); Alkaline Phosphatase 78 U/L (45-117); Aspartate Amino Transferase 32 U/L (0-37); Bilirubin,Total < 0.39 MG/DL (0.20-1.00); Blood Urea Nitrogen 7 MG/DL (7-18); Calcium 8.5 MG/DL (8.5-10.1); Carbon Dioxide 18 MMOL/L (21-32); Estimated Glom Filtration Rate 70 ML/MIN; Glucose 83 MG/DL (74-106); Potassium 3.3 MMOL/L (3.5-5.1); Sodium 136 MMOL/L (136-145); Total Protein 6.8 G/DL (6.4-8.2)
[2020-09-30] MEDS: DOCUSATE SODIUM 100 MG CAPSULE PO SCH (08:53)
[2020-09-30] MEDS: levETIRAcetam 500 MG TABLET PO SCH (08:53)
[2020-09-30] MEDS: ASPIRIN EC 81 MG TABLET PO SCH (08:53)
[2020-09-30] MEDS: THIAMINE 100 MG TABLET PO SCH (08:53)
[2020-09-30] MEDS: SODIUM BICARBONATE 650 MG TABLET PO SCH (08:54)
[2020-09-30] MEDS: CHOLECALCIFEROL 1,000 UNIT TABLET PO SCH (08:54)
[2020-09-30] MEDS: carvediloL 3.125 MG TABLET PO SCH (08:54)
[2020-09-30] MEDS: TOPIRAMATE 100 MG TABLET PO SCH (08:54)
[2020-09-30] MEDS: FOLIC ACID 1 MG TABLET PO SCH (08:54)
[2020-09-30] MEDS: SERTRALINE 50 MG TABLET PO SCH (08:54)
[2020-09-30] MEDS: hydroCHLOROthiazide 12.5 MG CAPSULE PO SCH (08:58)
[2020-09-30] MEDS: POLYETHYLENE GLYCOL POWDER 17 GM PACK PO SCH (08:59)
[2020-09-30] MEDS: lisinopriL 10 MG TABLET PO SCH (08:59)
[2020-09-30 11:47] VITALS: BP 100/59
== END 2020-09-30 13:06 | disposition home health service (06) | DRG 698 ==
LOC: EDBD → EDUNIT# → N.ED 09:18 → SUATTDRO 12:57 → N.EDINP 12:57 → N.5E 14:03
PROVIDERS: ADMIT Internal Medicine; ATTEND Hospitalist

== ENCOUNTER 2021-07-30 13:51 | Observation (INO) ==
[2021-07-30] MEDS ORDERED: SODIUM CHLORIDE 0.9% 1,000 ML IV STA ×2 (14:40→16:55)
[2021-07-30 15:13] LABS: Basophils # 0.1 10*3/uL (0.0-0.2); Basophils % 0.6 % (0.0-0.8); Eosinophils % 0.4 % (0.00-10.9); Hematocrit 42.9 VOL% (42.0-52.0); Hemoglobin 14.3 GM/DL (14.0-18.0); Immature Granulocytes % 0.3 %; Immature Granulocytes Absolute 0.03 #; Lymphocytes # 2.3 10*3/uL (1.4-4.0); Lymphocytes % 23.9 % (21.2-54.2); Mean Corpuscular HGB Conc 33.3 GM/DL (32-36); Mean Corpuscular Volume 85.8 FL (87-102); Monocytes # 0.8 10*3/uL (0.11-0.8); Monocytes % 8.1 % (1.7-12.7); Neutrophils % 66.7 % (38.7-73.9); Platelet Count 163 T/CUMM (130-400); Red Cell Distribution Width 14.9 % (9.3-17.3); White Blood Count 9.8 T/CUMM (4-12)
[2021-07-30 15:57] LABS: Alanine Aminotransferase 14 U/L (16-61); Alkaline Phosphatase 88 U/L (45-117); Aspartate Amino Transferase 12 U/L (0-37); Bilirubin,Total < 0.39 MG/DL (0.20-1.00); Blood Urea Nitrogen 12 MG/DL (7-18); Calcium 8.8 MG/DL (8.5-10.1); Carbon Dioxide 20 MMOL/L (21-32); Chloride 119 MMOL/L (98-107); Glucose 104 MG/DL (74-106); Osmolality,Calculated 289.6 MOS/KG (273-304); Potassium 4.2 MMOL/L (3.5-5.1); Sodium 146 MMOL/L (136-145); Total Protein 6.2 G/DL (6.4-8.2)
[2021-07-30 16:38] LABS: Bilirubin,Urine Negative (Negative); Blood, Urine Trace mg/dL (Negative); Glucose,Urine (UA) Negative (Negative); Ketones,Urine Negative (Negative); Nitrite,Urine Negative (Negative); Protein,Urine Negative (Negative); Urine Appearance Clear (Clear); Urine Color Yellow (Yellow); Urine Specific Gravity 1.015 (1.001-1.035); Urine Urobilinogen 0.2 eU/dL (<2.0)
[2021-07-30 16:41] LABS: Mucus,Urine Occasional /LPF (Occasional)
[2021-07-30] MEDS ORDERED: cefTRIAXone 1,000 MG in SODIUM CHLORIDE 0.9% 100 ML IV STA (17:04)
[2021-07-30] MEDS ORDERED: ONDANSETRON 4 MG/2 ML VIAL IV PRN (17:11)
[2021-07-30] MEDS ORDERED: DEXTROSE 10% 250 ML BAG IV PRN (17:11)
[2021-07-30] MEDS ORDERED: GLUCAGON 1 MG VIAL IM PRN (17:11)
[2021-07-30] MEDS ORDERED: NICOTINE 21 MG/24 HR PATCH TRANSDERM PRN (17:11)
[2021-07-30] MEDS ORDERED: ACETAMINOPHEN 325 MG TABLET PO PRN (17:11)
[2021-07-30] MEDS ORDERED: ENOXAPARIN 40 MG/0.4 ML SYRINGE SUBCUT SCH (18:00)
[2021-07-30] MEDS: SODIUM CHLORIDE 0.45% 1,000 ML IV SCH (19:12)
[2021-07-30 19:31] LABS: Barbiturates Screen,Urine Negative (Negative); Benzodiazepines Screen,Urine Negative (Negative); Cannabinoid Screen,Urine Positive (Negative); Opiate Screen,Urine Negative (Negative); Phencyclidine Screen,Urine Negative (Negative)
[2021-07-30] MEDS ORDERED: DOCUSATE SODIUM 100 MG CAPSULE PO SCH (21:00)
[2021-07-30] MEDS: CIPROFLOXACIN INJ 400 MG/200 ML PREMIX IV SCH (22:14)
[2021-07-30] MEDS: DONEPEZIL 10 MG TABLET PO SCH (22:16)
[2021-07-30] MEDS: DOCUSATE SODIUM 100 MG CAPSULE PO SCH (22:16)
[2021-07-30] MEDS: traZODone 50 MG TABLET PO SCH (22:16)
[2021-07-30] MEDS: TOPIRAMATE 100 MG TABLET PO SCH (22:18)
[2021-07-31 06:02] LABS: Basophils # 0.1 10*3/uL (0.0-0.2); Basophils % 0.6 % (0.0-0.8); Eosinophils # 0.1 10*3/uL (0.0-0.87); Eosinophils % 0.7 % (0.00-10.9); Hematocrit 36.5 VOL% (42.0-52.0); Hemoglobin 12.3 GM/DL (14.0-18.0); Immature Granulocytes % 0.6 %; Immature Granulocytes Absolute 0.05 #; Lymphocytes # 1.9 10*3/uL (1.4-4.0); Lymphocytes % 23.1 % (21.2-54.2); Mean Corpuscular HGB Conc 33.7 GM/DL (32-36); Mean Corpuscular Volume 84.3 FL (87-102); Mean Platelet Volume 11.3 FL (9.6-12.0); Monocytes # 0.8 10*3/uL (0.11-0.8); Monocytes % 9.9 % (1.7-12.7); Neutrophils % 65.1 % (38.7-73.9); Platelet Count 164 T/CUMM (130-400); Red Blood Count 4.33 MC/CUMM (3.8-5.5); Red Cell Distribution Width 14.9 % (9.3-17.3); White Blood Count 8.3 T/CUMM (4-12)
[2021-07-31 06:43] LABS: Calcium 8.3 MG/DL (8.5-10.1); Potassium 3.4 MMOL/L (3.5-5.1); Risk Ratio 3.78; Thyroid Stimulating Hormone 0.473 uIU/ml (0.358-3.74); VLDL Cholesterol 22.6 MG/DL
[2021-07-31] MEDS ORDERED: POTASSIUM CHLORIDE 10 MEQ TABLET PO ONE (08:24)
[2021-07-31] MEDS: SERTRALINE 25 MG TABLET PO SCH (11:43)
[2021-07-31] MEDS: MULTIVITAMIN (CENTRUM) TABLET PO SCH (11:43)
[2021-07-31] MEDS: CHOLECALCIFEROL 1,000 UNIT TABLET PO SCH (11:44)
[2021-07-31] MEDS: TOPIRAMATE 100 MG TABLET PO SCH ×2 (11:44→20:42)
[2021-07-31] MEDS: FOLIC ACID 1 MG TABLET PO SCH (11:44)
[2021-07-31] MEDS: DOCUSATE SODIUM 100 MG CAPSULE PO SCH ×2 (11:45→20:42)
[2021-07-31] MEDS: CYANOCOBALAMIN 500 MCG TABLET PO SCH (11:45)
[2021-07-31] MEDS: PANTOPRAZOLE 40 MG TABLET PO SCH (11:45)
[2021-07-31] MEDS: ATORVASTATIN 20 MG TABLET PO SCH (11:45)
[2021-07-31] MEDS: SODIUM CHLORIDE 0.45% 1,000 ML IV SCH ×2 (11:46→17:44)
[2021-07-31] MEDS ORDERED: ENOXAPARIN 60 MG/0.6 ML SYRINGE SUBCUT ONE (13:30)
[2021-07-31] MEDS: CIPROFLOXACIN INJ 400 MG/200 ML PREMIX IV SCH (17:45)
[2021-07-31] MEDS: APIXABAN 5 MG TABLET PO SCH (20:42)
[2021-07-31] MEDS: traZODone 50 MG TABLET PO SCH (20:42)
[2021-07-31] MEDS: DONEPEZIL 10 MG TABLET PO SCH (20:42)
[2021-08-01 06:43] LABS: Basophils # 0.1 10*3/uL (0.0-0.2); Basophils % 0.6 % (0.0-0.8); Eosinophils # 0.1 10*3/uL (0.0-0.87); Eosinophils % 1.2 % (0.00-10.9); Hematocrit 37.7 VOL% (42.0-52.0); Hemoglobin 12.7 GM/DL (14.0-18.0); Immature Granulocytes % 0.2 %; Immature Granulocytes Absolute 0.02 #; Lymphocytes # 2.5 10*3/uL (1.4-4.0); Lymphocytes % 30.7 % (21.2-54.2); Mean Corpuscular HGB Conc 33.7 GM/DL (32-36); Mean Corpuscular Volume 84.7 FL (87-102); Mean Platelet Volume 12.5 FL (9.6-12.0); Monocytes # 0.6 10*3/uL (0.11-0.8); Monocytes % 7.9 % (1.7-12.7); Neutrophils % 59.4 % (38.7-73.9); Platelet Count 169 T/CUMM (130-400); Red Blood Count 4.45 MC/CUMM (3.8-5.5); Red Cell Distribution Width 14.8 % (9.3-17.3); White Blood Count 8.1 T/CUMM (4-12)
[2021-08-01 07:00] LABS: Calcium 8.5 MG/DL (8.5-10.1); Osmolality,Calculated 282.1 MOS/KG (273-304); Potassium 3.4 MMOL/L (3.5-5.1)
[2021-08-01] MEDS: ATORVASTATIN 20 MG TABLET PO SCH (09:23)
[2021-08-01] MEDS: DOCUSATE SODIUM 100 MG CAPSULE PO SCH (09:23)
[2021-08-01] MEDS: CYANOCOBALAMIN 500 MCG TABLET PO SCH (09:23)
[2021-08-01] MEDS: PANTOPRAZOLE 40 MG TABLET PO SCH (09:23)
[2021-08-01] MEDS: APIXABAN 5 MG TABLET PO SCH (09:23)
[2021-08-01] MEDS: CHOLECALCIFEROL 1,000 UNIT TABLET PO SCH (09:23)
[2021-08-01] MEDS: SERTRALINE 25 MG TABLET PO SCH (09:23)
[2021-08-01] MEDS: TOPIRAMATE 100 MG TABLET PO SCH (09:23)
[2021-08-01] MEDS: FOLIC ACID 1 MG TABLET PO SCH (09:23)
[2021-08-01] MEDS: MULTIVITAMIN (CENTRUM) TABLET PO SCH (09:23)
[2021-08-01 11:45] VITALS: BP 128/72
[2021-08-01] MEDS ORDERED: POTASSIUM CHLORIDE 20 MEQ TABLET PO ONE (12:00)
[2021-08-01] MEDS: SODIUM CHLORIDE 0.45% 1,000 ML IV SCH (14:14)
== END 2021-08-01 14:06 | disposition home or self-care (01) ==
LOC: EDUNIT# → SUATTDRO → EDBD → N.5E 13:51 → N.ED 13:51 → SUATTDRO 17:11 → N.5E 21:02
PROVIDERS: ADMIT Internal Medicine; ATTEND Hospitalist

== ENCOUNTER 2022-02-06 09:30 | Inpatient (IN) ==
[2022-02-06 11:53] LABS: Alanine Aminotransferase 36 U/L (16-61); Albumin 3.7 G/DL (3.4-5.0); Alkaline Phosphatase 111 U/L (45-117); Aspartate Amino Transferase 20 U/L (0-37); Bilirubin,Total < 0.39 MG/DL (0.20-1.00); Blood Urea Nitrogen 15 MG/DL (7-18); Carbon Dioxide 25 MMOL/L (21-32); Chloride 112 MMOL/L (98-107); Glucose 69 MG/DL (74-106); Osmolality,Calculated 279.3 MOS/KG (273-304); Potassium 3.9 MMOL/L (3.5-5.1); Sodium 141 MMOL/L (136-145); Total Protein 8.2 G/DL (6.4-8.2)
[2022-02-06 14:35] LABS: Basophils # 0.1 10*3/uL (0.0-0.2); Eosinophils # 0.1 10*3/uL (0.0-0.87); Hematocrit 45.5 VOL% (42.0-52.0); Hemoglobin 14.5 GM/DL (14.0-18.0); Immature Granulocytes % 0.3 %; Immature Granulocytes Absolute 0.02 #; Lymphocytes # 2.4 10*3/uL (1.4-4.0); Lymphocytes % 30.5 % (21.2-54.2); Mean Corpuscular HGB Conc 31.9 GM/DL (32-36); Mean Corpuscular Volume 88.5 FL (87-102); Mean Platelet Volume 12.9 FL (9.6-12.0); Monocytes # 0.8 10*3/uL (0.11-0.8); Monocytes % 10.6 % (1.7-12.7); Neutrophils % 56.6 % (38.7-73.9); Platelet Count 220 T/CUMM (130-400); Red Blood Count 5.14 MC/CUMM (3.8-5.5); Red Cell Distribution Width 14.9 % (9.3-17.3); White Blood Count 7.9 T/CUMM (4-12)
[2022-02-06] MEDS ORDERED: ACETAMINOPHEN 325 MG TABLET PO PRN (15:27)
[2022-02-06] MEDS ORDERED: NICOTINE 21 MG/24 HR PATCH TRANSDERM PRN (15:27)
[2022-02-06] MEDS ORDERED: ONDANSETRON 4 MG/2 ML VIAL IV PRN (15:27)
[2022-02-06] MEDS ORDERED: ZALEPLON 5 MG CAPSULE PO PRN (15:27)
[2022-02-06] MEDS ORDERED: MORPHINE 2 MG/1 ML SYRINGE IV PRN (15:53)
[2022-02-06] MEDS ORDERED: DEXTROSE 50% 25 GM/50 ML VIAL IV STA (15:58)
[2022-02-06] MEDS ORDERED: DEXTROSE 50% 25 GM/50 ML SYRINGE IV STA (16:01)
[2022-02-06 16:10] LABS: INR 1.1; PT Patient Result 11.7 SECS (10.1-12.1)
[2022-02-06 16:10] LABS: Bilirubin,Urine Negative (Negative); Blood, Urine Negative (Negative); Glucose,Urine (UA) Negative (Negative); Ketones,Urine Negative (Negative); Nitrite,Urine Negative (Negative); Protein,Urine 30 mg/dL (Negative); Urine Appearance Clear (Clear); Urine Color Yellow (Yellow); Urine Urobilinogen 0.3 eU/dL (<2.0); Urine pH 5.5 (4.5-8.0)
[2022-02-06 16:13] LABS: Mucus,Urine Occasional /LPF (Occasional); RBC,Urine <1 /HPF (0-4)
[2022-02-06] MEDS: HEPARIN DRIP 25,000 UNITS/500 ML PREMIX IV SCH (18:41)
[2022-02-06] MEDS: DOCUSATE SODIUM 100 MG CAPSULE PO SCH (21:07)
[2022-02-06] MEDS: MONTELUKAST 10 MG TABLET PO SCH (21:08)
[2022-02-07 01:08] LABS: PT Patient Result 11.2 SECS (10.1-12.1); Partial Thromboplastin Time 67.8 SECS (23.7-32.9)
[2022-02-07 05:55] LABS: Basophils # 0.1 10*3/uL (0.0-0.2); Eosinophils # 0.1 10*3/uL (0.0-0.87); Eosinophils % 1.1 % (0.00-10.9); Hematocrit 37.7 VOL% (42.0-52.0); Hemoglobin 12.2 GM/DL (14.0-18.0); Immature Granulocytes % 0.1 %; Immature Granulocytes Absolute 0.01 #; Lymphocytes % 42.2 % (21.2-54.2); Mean Corpuscular HGB Conc 32.4 GM/DL (32-36); Mean Corpuscular Volume 85.9 FL (87-102); Mean Platelet Volume 12.5 FL (9.6-12.0); Monocytes # 0.7 10*3/uL (0.11-0.8); Monocytes % 9.9 % (1.7-12.7); Neutrophils % 45.7 % (38.7-73.9); Platelet Count 212 T/CUMM (130-400); Red Blood Count 4.39 MC/CUMM (3.8-5.5); Red Cell Distribution Width 14.8 % (9.3-17.3); White Blood Count 7.1 T/CUMM (4-12)
[2022-02-07 06:02] LABS: PT Patient Result 11.4 SECS (10.1-12.1)
[2022-02-07 06:19] LABS: Calcium 8.7 MG/DL (8.5-10.1); Osmolality,Calculated 276.5 MOS/KG (273-304); Potassium 3.7 MMOL/L (3.5-5.1); Risk Ratio 3.7; Thyroid Stimulating Hormone 1.22 uIU/ml (0.358-3.74)
[2022-02-07] MEDS: DOCUSATE SODIUM 100 MG CAPSULE PO SCH ×2 (09:12→20:44)
[2022-02-07] MEDS: MULTIVITAMIN (CENTRUM) TABLET PO SCH (09:12)
[2022-02-07] MEDS: CYANOCOBALAMIN 500 MCG TABLET PO SCH (09:12)
[2022-02-07] MEDS: PANTOPRAZOLE 40 MG TABLET PO SCH (09:13)
[2022-02-07] MEDS: CHOLECALCIFEROL 1,000 UNIT TABLET PO SCH (09:13)
[2022-02-07] MEDS ORDERED: ZINC OXIDE PASTE 113 GM TUBE TOP PRN (13:43)
[2022-02-07] MEDS ORDERED: amLODIPine 5 MG TABLET PO ONE (14:18)
[2022-02-07] MEDS: HEPARIN DRIP 25,000 UNITS/500 ML PREMIX IV SCH ×2 (20:18→23:19)
[2022-02-07] MEDS: MONTELUKAST 10 MG TABLET PO SCH (20:44)
[2022-02-07] MEDS: ATORVASTATIN 40 MG TABLET PO SCH (20:45)
[2022-02-07] MEDS ORDERED: ATORVASTATIN 20 MG TABLET PO SCH (21:00)
[2022-02-08 05:33] LABS: Basophils # 0.1 10*3/uL (0.0-0.2); Basophils % 0.7 % (0.0-0.8); Eosinophils # 0.1 10*3/uL (0.0-0.87); Eosinophils % 1.1 % (0.00-10.9); Hemoglobin 12.4 GM/DL (14.0-18.0); Immature Granulocytes % 0.2 %; Immature Granulocytes Absolute 0.02 #; Lymphocytes % 35.8 % (21.2-54.2); Mean Corpuscular HGB Conc 32.6 GM/DL (32-36); Mean Corpuscular Volume 86.2 FL (87-102); Mean Platelet Volume 11.9 FL (9.6-12.0); Monocytes # 0.8 10*3/uL (0.11-0.8); Monocytes % 9.9 % (1.7-12.7); Neutrophils % 52.3 % (38.7-73.9); Platelet Count 198 T/CUMM (130-400); Red Blood Count 4.41 MC/CUMM (3.8-5.5); Red Cell Distribution Width 14.7 % (9.3-17.3); White Blood Count 8.4 T/CUMM (4-12)
[2022-02-08 05:42] LABS: PT Patient Result 10.9 SECS (10.1-12.1); Partial Thromboplastin Time 90.6 SECS (23.7-32.9)
[2022-02-08 05:54] LABS: Calcium 8.8 MG/DL (8.5-10.1); Osmolality,Calculated 279.4 MOS/KG (273-304); Potassium 3.7 MMOL/L (3.5-5.1)
[2022-02-08] MEDS: PANTOPRAZOLE 40 MG TABLET PO SCH (09:15)
[2022-02-08] MEDS: ASPIRIN EC 81 MG TABLET PO SCH (09:15)
[2022-02-08] MEDS: CYANOCOBALAMIN 500 MCG TABLET PO SCH (09:15)
[2022-02-08] MEDS: DOCUSATE SODIUM 100 MG CAPSULE PO SCH ×2 (09:15→21:05)
[2022-02-08] MEDS: CHOLECALCIFEROL 1,000 UNIT TABLET PO SCH (09:16)
[2022-02-08] MEDS: MULTIVITAMIN (CENTRUM) TABLET PO SCH (09:16)
[2022-02-08] MEDS: amLODIPine 5 MG TABLET PO SCH (09:16)
[2022-02-08 12:07] LABS: Cancer Antigen 19-9 16.94 U/ML (0-35); Carcinoembryonic Antigen 1.7 NG/ML (0.0-5.0); Prostate Specific Antigen Diag 0.36 NG/ML (0-3.60)
[2022-02-08] MEDS: HEPARIN DRIP 25,000 UNITS/500 ML PREMIX IV SCH (18:34)
[2022-02-08] MEDS: ATORVASTATIN 40 MG TABLET PO SCH (21:05)
[2022-02-08] MEDS: MONTELUKAST 10 MG TABLET PO SCH (21:05)
[2022-02-09 00:40] LABS: Basophils # 0.1 10*3/uL (0.0-0.2); Basophils % 0.8 % (0.0-0.8); Eosinophils # 0.1 10*3/uL (0.0-0.87); Eosinophils % 0.8 % (0.00-10.9); Hematocrit 37.5 VOL% (42.0-52.0); Hemoglobin 12.1 GM/DL (14.0-18.0); Immature Granulocytes % 0.3 %; Immature Granulocytes Absolute 0.03 #; Lymphocytes # 3.3 10*3/uL (1.4-4.0); Lymphocytes % 38.4 % (21.2-54.2); Mean Corpuscular HGB Conc 32.3 GM/DL (32-36); Mean Platelet Volume 11.6 FL (9.6-12.0); Monocytes # 0.8 10*3/uL (0.11-0.8); Monocytes % 9.8 % (1.7-12.7); Neutrophils % 49.9 % (38.7-73.9); Platelet Count 209 T/CUMM (130-400); Red Blood Count 4.31 MC/CUMM (3.8-5.5); Red Cell Distribution Width 14.9 % (9.3-17.3); White Blood Count 8.6 T/CUMM (4-12)
[2022-02-09 00:53] LABS: Calcium 8.9 MG/DL (8.5-10.1); Osmolality,Calculated 280.3 MOS/KG (273-304); Potassium 3.9 MMOL/L (3.5-5.1)
[2022-02-09] MEDS: CHOLECALCIFEROL 1,000 UNIT TABLET PO SCH (09:10)
[2022-02-09] MEDS: PANTOPRAZOLE 40 MG TABLET PO SCH (09:10)
[2022-02-09] MEDS: ASPIRIN EC 81 MG TABLET PO SCH (09:10)
[2022-02-09] MEDS: MULTIVITAMIN (CENTRUM) TABLET PO SCH (09:10)
[2022-02-09] MEDS: amLODIPine 5 MG TABLET PO SCH (09:10)
[2022-02-09] MEDS: CYANOCOBALAMIN 500 MCG TABLET PO SCH (09:10)
[2022-02-09] MEDS: DOCUSATE SODIUM 100 MG CAPSULE PO SCH ×2 (09:10→22:09)
[2022-02-09] MEDS ORDERED: DIAZEPAM 2 MG TABLET PO ONE (12:45)
[2022-02-09] MEDS ORDERED: ALBUTEROL 2.5 MG/3 ML NEB RESP TX ONE (12:45)
[2022-02-09] MEDS: HEPARIN DRIP 25,000 UNITS/500 ML PREMIX IV SCH (17:50)
[2022-02-09 19:00] LABS: Urine Appearance Slightly Cloudy (Clear); Urine Color Yellow (Yellow); Urine Specific Gravity 1.025 (1.001-1.035); Urine pH 5.5 (4.5-8.0)
[2022-02-09 19:01] LABS: Bilirubin,Urine Negative (Negative); Blood, Urine Small mg/dL (Negative); Glucose,Urine (UA) Negative (Negative); Ketones,Urine Negative (Negative); Nitrite,Urine Negative (Negative); Protein,Urine Negative (Negative); Urine Urobilinogen 0.2 eU/dL (<2.0)
[2022-02-09 19:04] LABS: Mucus,Urine Occasional /LPF (Occasional); RBC,Urine 8 /HPF (0-4); Squamous Epithelial Cell,Urine Occasional /HPF (0-10)
[2022-02-09] MEDS: MONTELUKAST 10 MG TABLET PO SCH (22:09)
[2022-02-09] MEDS: ATORVASTATIN 40 MG TABLET PO SCH (22:09)
[2022-02-10 06:26] LABS: Basophils % 0.3 % (0.0-0.8); Eosinophils # 0.1 10*3/uL (0.0-0.87); Eosinophils % 0.5 % (0.00-10.9); Hemoglobin 12.8 GM/DL (14.0-18.0); Immature Granulocytes % 0.3 %; Immature Granulocytes Absolute 0.04 #; Lymphocytes # 1.7 10*3/uL (1.4-4.0); Lymphocytes % 13.7 % (21.2-54.2); Mean Corpuscular HGB Conc 32.8 GM/DL (32-36); Mean Corpuscular Volume 86.3 FL (87-102); Mean Platelet Volume 11.4 FL (9.6-12.0); Monocytes % 7.8 % (1.7-12.7); Neutrophils % 77.4 % (38.7-73.9); Platelet Count 203 T/CUMM (130-400); Red Blood Count 4.52 MC/CUMM (3.8-5.5); Red Cell Distribution Width 15.1 % (9.3-17.3); White Blood Count 12.4 T/CUMM (4-12)
[2022-02-10 06:39] LABS: Calcium 8.7 MG/DL (8.5-10.1); Osmolality,Calculated 282.3 MOS/KG (273-304); Potassium 3.7 MMOL/L (3.5-5.1)
[2022-02-10 06:44] LABS: Platelet Estimate Normal
[2022-02-10] MEDS ORDERED: cefTRIAXone 1,000 MG in SODIUM CHLORIDE 0.9% 100 ML IV SCH (08:00)
[2022-02-10] MEDS: DOCUSATE SODIUM 100 MG CAPSULE PO SCH ×2 (09:16→21:34)
[2022-02-10] MEDS: ASPIRIN EC 81 MG TABLET PO SCH (09:16)
[2022-02-10] MEDS: CYANOCOBALAMIN 500 MCG TABLET PO SCH (09:16)
[2022-02-10] MEDS: MULTIVITAMIN (CENTRUM) TABLET PO SCH (09:16)
[2022-02-10] MEDS: amLODIPine 5 MG TABLET PO SCH (09:16)
[2022-02-10] MEDS: PANTOPRAZOLE 40 MG TABLET PO SCH (09:17)
[2022-02-10] MEDS: CHOLECALCIFEROL 1,000 UNIT TABLET PO SCH (09:17)
[2022-02-10] MEDS: HEPARIN DRIP 25,000 UNITS/500 ML PREMIX IV SCH (16:15)
[2022-02-10] MEDS: POLYETHYLENE GLYCOL POWDER 17 GM PACK PO SCH (16:15)
[2022-02-10] MEDS: ATORVASTATIN 40 MG TABLET PO SCH (21:34)
[2022-02-10] MEDS: MONTELUKAST 10 MG TABLET PO SCH (21:34)
[2022-02-11 00:43] LABS: Basophils # 0.1 10*3/uL (0.0-0.2); Basophils % 0.6 % (0.0-0.8); Eosinophils % 0.3 % (0.00-10.9); Hematocrit 38.5 VOL% (42.0-52.0); Hemoglobin 12.7 GM/DL (14.0-18.0); Immature Granulocytes % 0.4 %; Immature Granulocytes Absolute 0.05 #; Lymphocytes # 2.7 10*3/uL (1.4-4.0); Lymphocytes % 22.8 % (21.2-54.2); Mean Corpuscular Volume 85.9 FL (87-102); Mean Platelet Volume 11.8 FL (9.6-12.0); Monocytes # 1.4 10*3/uL (0.11-0.8); Monocytes % 11.6 % (1.7-12.7); Neutrophils % 64.3 % (38.7-73.9); Platelet Count 206 T/CUMM (130-400); Red Blood Count 4.48 MC/CUMM (3.8-5.5); Red Cell Distribution Width 15.1 % (9.3-17.3); White Blood Count 11.9 T/CUMM (4-12)
[2022-02-11 00:52] LABS: Calcium 8.8 MG/DL (8.5-10.1); Osmolality,Calculated 273.7 MOS/KG (273-304); Potassium 3.4 MMOL/L (3.5-5.1)
[2022-02-11] MEDS ORDERED: MAGNESIUM CITRATE 300 ML BOTTLE PO ONE (08:00)
[2022-02-11] MEDS ORDERED: MAGNESIUM HYDROXIDE SUSP 30 ML UDCUP PO ONE (08:00)
[2022-02-11] MEDS ORDERED: POTASSIUM CHLORIDE 20 MEQ TABLET PO ONE (08:07)
[2022-02-11] MEDS: POLYETHYLENE GLYCOL POWDER 17 GM PACK PO SCH (09:48)
[2022-02-11] MEDS: DOCUSATE SODIUM 100 MG CAPSULE PO SCH ×2 (09:49→21:33)
[2022-02-11] MEDS: PANTOPRAZOLE 40 MG TABLET PO SCH (09:49)
[2022-02-11] MEDS: MULTIVITAMIN (CENTRUM) TABLET PO SCH (09:49)
[2022-02-11] MEDS: ASPIRIN EC 81 MG TABLET PO SCH (09:49)
[2022-02-11] MEDS: CHOLECALCIFEROL 1,000 UNIT TABLET PO SCH (09:50)
[2022-02-11] MEDS: amLODIPine 5 MG TABLET PO SCH (09:50)
[2022-02-11] MEDS: CYANOCOBALAMIN 500 MCG TABLET PO SCH (09:50)
[2022-02-11] MEDS: ATORVASTATIN 40 MG TABLET PO SCH (21:33)
[2022-02-11] MEDS: MONTELUKAST 10 MG TABLET PO SCH (21:33)
[2022-02-12 04:17] LABS: Basophils # 0.1 10*3/uL (0.0-0.2); Basophils % 0.8 % (0.0-0.8); Eosinophils # 0.1 10*3/uL (0.0-0.87); Eosinophils % 0.7 % (0.00-10.9); Hematocrit 35.8 VOL% (42.0-52.0); Hemoglobin 11.7 GM/DL (14.0-18.0); Immature Granulocytes % 0.2 %; Immature Granulocytes Absolute 0.02 #; Lymphocytes # 2.2 10*3/uL (1.4-4.0); Lymphocytes % 24.8 % (21.2-54.2); Mean Corpuscular HGB Conc 32.7 GM/DL (32-36); Mean Corpuscular Volume 86.7 FL (87-102); Mean Platelet Volume 11.4 FL (9.6-12.0); Monocytes % 11.2 % (1.7-12.7); Neutrophils % 62.3 % (38.7-73.9); Platelet Count 196 T/CUMM (130-400); Red Blood Count 4.13 MC/CUMM (3.8-5.5); Red Cell Distribution Width 15.4 % (9.3-17.3); White Blood Count 8.8 T/CUMM (4-12)
[2022-02-12 04:26] LABS: PT Patient Result 10.8 SECS (10.1-12.1)
[2022-02-12 04:34] LABS: Calcium 8.9 MG/DL (8.5-10.1); Osmolality,Calculated 282.4 MOS/KG (273-304); Potassium 3.9 MMOL/L (3.5-5.1)
[2022-02-12] MEDS ORDERED: VANCOMYCIN INJ 1,000 MG in SODIUM CHLORIDE 0.9% 250 ML IV ONE (06:00)
[2022-02-12] MEDS ORDERED: NITROGLYCERIN DRIP 50 MG/250 ML BOTTLE IV ONE (06:17)
[2022-02-12] MEDS ORDERED: HEPARIN/NACL 0.9% 2 UNITS/ML 1,000 UNIT/500 ML BAG IV ONE (06:17)
[2022-02-12] MEDS ORDERED: PHENYLEPHRINE DRIP 20 MG/250 ML PREMIX IV ONE (06:17)
[2022-02-12] MEDS ORDERED: ONDANSETRON 4 MG/2 ML VIAL ONE (06:27)
[2022-02-12] MEDS ORDERED: fentaNYL 100 MCG/2 ML VIAL ONE ×4 (06:27→09:54)
[2022-02-12] MEDS ORDERED: MIDAZOLAM 2 MG/2 ML VIAL ONE ×2 (06:27→07:30)
[2022-02-12] MEDS ORDERED: ROCURONIUM 50 MG/5 ML VIAL IV ONE ×2 (06:27→10:28)
[2022-02-12] MEDS ORDERED: DEXAMETHASONE 4 MG/1 ML VIAL ONE (06:27)
[2022-02-12] MEDS ORDERED: propofoL 200 MG/20 ML VIAL IV ONE (06:27)
[2022-02-12] MEDS ORDERED: ALBUTEROL 2.5 MG/3 ML NEB RESP TX ONE (06:30)
[2022-02-12] MEDS ORDERED: FAMOTIDINE 20 MG TABLET PO ONE (06:30)
[2022-02-12] MEDS ORDERED: DIAZEPAM 2 MG TABLET PO ONE (06:30)
[2022-02-12] MEDS ORDERED: LIDOCAINE 2% 5 ML VIAL ONE (06:44)
[2022-02-12] MEDS ORDERED: LACTATED RINGERS 1,000 ML IV SCH (08:00)
[2022-02-12] MEDS ORDERED: HEPARIN 5,000 UNIT/1 ML VIAL ONE (08:28)
[2022-02-12] MEDS ORDERED: SEVOFLURANE 1 UNIT/15 MINUTE INH ONE (08:35)
[2022-02-12] MEDS ORDERED: SODIUM CHLORIDE 0.9% 0 ML IV ONE (08:35)
[2022-02-12] MEDS ORDERED: FUROSEMIDE 20 MG/2 ML VIAL ONE ×2 (10:00→10:48)
[2022-02-12] MEDS ORDERED: SODIUM CHLORIDE 0.9% 1,000 ML IV ONE (10:01)
[2022-02-12] MEDS ORDERED: METOPROLOL TARTRATE 5 MG/5 ML VIAL IV ONE (10:05)
[2022-02-12] MEDS ORDERED: HEPARIN 10,000 UNIT/10 ML VIAL ONE (10:19)
[2022-02-12] MEDS ORDERED: ALBUMIN 5% 25.0 GM/500 ML VIAL IV ONE (10:48)
[2022-02-12] MEDS ORDERED: SUGAMMADEX 200 MG/2 ML VIAL IV ONE (11:23)
[2022-02-12] MEDS ORDERED: PROTAMINE SULFATE 50 MG/5 ML VIAL IV ONE (11:29)
[2022-02-12 13:35] LABS: Hematocrit 36.5 VOL% (42.0-52.0); Hemoglobin 11.7 GM/DL (14.0-18.0)
[2022-02-12] MEDS: fentaNYL 2 MCG/ROPIV 0.2% EPID 100 ML EPIDURAL SCH ×2 (13:45→22:57)
[2022-02-12 13:58] LABS: Calcium 8.1 MG/DL (8.5-10.1); Osmolality,Calculated 287.1 MOS/KG (273-304); Potassium 4.4 MMOL/L (3.5-5.1)
[2022-02-12] MEDS: ALUMINUM/MAGNES/SIMETH MAX STR 30 ML UDCUP NG SCH ×3 (14:36→21:51)
[2022-02-12] MEDS: LACTATED RINGERS 1,000 ML IV SCH ×2 (14:36→23:00)
[2022-02-12] MEDS: amLODIPine 5 MG TABLET PO SCH (14:37)
[2022-02-12] MEDS: DOCUSATE SODIUM 100 MG CAPSULE PO SCH (14:37)
[2022-02-12] MEDS: MULTIVITAMIN (CENTRUM) TABLET PO SCH (14:37)
[2022-02-12] MEDS: POLYETHYLENE GLYCOL POWDER 17 GM PACK PO SCH (14:37)
[2022-02-12] MEDS: ASPIRIN EC 81 MG TABLET PO SCH (14:37)
[2022-02-12] MEDS: PANTOPRAZOLE 40 MG TABLET PO SCH (14:38)
[2022-02-12] MEDS: CHOLECALCIFEROL 1,000 UNIT TABLET PO SCH (14:39)
[2022-02-12] MEDS: CYANOCOBALAMIN 500 MCG TABLET PO SCH (14:39)
[2022-02-12] MEDS ORDERED: NITROPRUSSIDE 100 MG in DEXTROSE 5% 246 ML IV PRN ×3 (19:29→21:14)
[2022-02-12] MEDS: MORPHINE 2 MG/1 ML SYRINGE IV PRN (21:23)
[2022-02-12] MEDS ORDERED: HYDROmorphone 1 MG/1 ML SYRINGE IV ONE (21:37)
[2022-02-12] MEDS ORDERED: KETOROLAC 30 MG/1 ML VIAL IV PRN (22:18)
[2022-02-13] MEDS: ALUMINUM/MAGNES/SIMETH MAX STR 30 ML UDCUP NG SCH ×2 (00:31→06:07)
[2022-02-13 05:51] LABS: Basophils # 0.1 10*3/uL (0.0-0.2); Basophils % 0.4 % (0.0-0.8); Hematocrit 28.1 VOL% (42.0-52.0); Hemoglobin 9.1 GM/DL (14.0-18.0); Immature Granulocytes % 0.4 %; Immature Granulocytes Absolute 0.06 #; Lymphocytes # 1.5 10*3/uL (1.4-4.0); Lymphocytes % 9.6 % (21.2-54.2); Mean Corpuscular HGB Conc 32.4 GM/DL (32-36); Mean Corpuscular Volume 88.1 FL (87-102); Mean Platelet Volume 11.5 FL (9.6-12.0); Monocytes # 1.6 10*3/uL (0.11-0.8); Monocytes % 10.5 % (1.7-12.7); Neutrophils % 79.1 % (38.7-73.9); Platelet Count 183 T/CUMM (130-400); Red Blood Count 3.19 MC/CUMM (3.8-5.5); Red Cell Distribution Width 15.6 % (9.3-17.3); White Blood Count 15.5 T/CUMM (4-12)
[2022-02-13] MEDS: fentaNYL 2 MCG/ROPIV 0.2% EPID 100 ML EPIDURAL SCH ×3 (06:49→22:36)
[2022-02-13] MEDS: LACTATED RINGERS 1,000 ML IV SCH ×2 (07:00→21:57)
[2022-02-13 08:43] LABS: Calcium 8.6 MG/DL (8.5-10.1); Potassium 4.4 MMOL/L (3.5-5.1)
[2022-02-13] MEDS ORDERED: cloNIDine 0.2 MG/24 HR PATCH TRANSDERM SCH (09:00)
[2022-02-13] MEDS: ENALAPRIL 2.5 MG/2 ML VIAL IV SCH ×3 (10:26→21:57)
[2022-02-13] MEDS: MORPHINE 2 MG/1 ML SYRINGE IV PRN (18:23)
[2022-02-14] MEDS: ENALAPRIL 2.5 MG/2 ML VIAL IV SCH ×2 (04:36→09:23)
[2022-02-14] MEDS: fentaNYL 2 MCG/ROPIV 0.2% EPID 100 ML EPIDURAL SCH ×3 (06:04→22:11)
[2022-02-14] MEDS: LACTATED RINGERS 1,000 ML IV SCH (06:04)
[2022-02-14 06:20] LABS: Basophils # 0.1 10*3/uL (0.0-0.2); Basophils % 0.4 % (0.0-0.8); Eosinophils % 0.3 % (0.00-10.9); Hematocrit 26.4 VOL% (42.0-52.0); Hemoglobin 8.6 GM/DL (14.0-18.0); Immature Granulocytes % 0.6 %; Immature Granulocytes Absolute 0.08 #; Lymphocytes # 2.2 10*3/uL (1.4-4.0); Lymphocytes % 16.2 % (21.2-54.2); Mean Corpuscular HGB Conc 32.6 GM/DL (32-36); Mean Corpuscular Volume 89.2 FL (87-102); Mean Platelet Volume 11.8 FL (9.6-12.0); Monocytes # 1.5 10*3/uL (0.11-0.8); Monocytes % 10.9 % (1.7-12.7); Neutrophils % 71.6 % (38.7-73.9); Platelet Count 152 T/CUMM (130-400); Red Blood Count 2.96 MC/CUMM (3.8-5.5); Red Cell Distribution Width 15.7 % (9.3-17.3); White Blood Count 13.3 T/CUMM (4-12)
[2022-02-14 06:33] LABS: Calcium 8.9 MG/DL (8.5-10.1); Osmolality,Calculated 281.3 MOS/KG (273-304)
[2022-02-14] MEDS: amLODIPine 5 MG TABLET PO SCH (09:30)
[2022-02-14] MEDS: ASPIRIN EC 81 MG TABLET PO SCH (09:30)
[2022-02-14] MEDS: MORPHINE 2 MG/1 ML SYRINGE IV PRN ×2 (18:13→21:29)
[2022-02-14] MEDS: ATORVASTATIN 20 MG TABLET PO SCH (21:28)
[2022-02-15 05:43] LABS: Basophils # 0.1 10*3/uL (0.0-0.2); Basophils % 0.4 % (0.0-0.8); Eosinophils # 0.1 10*3/uL (0.0-0.87); Eosinophils % 0.8 % (0.00-10.9); Hematocrit 24.8 VOL% (42.0-52.0); Hemoglobin 8.1 GM/DL (14.0-18.0); Immature Granulocytes % 0.5 %; Immature Granulocytes Absolute 0.06 #; Lymphocytes # 2.2 10*3/uL (1.4-4.0); Lymphocytes % 18.6 % (21.2-54.2); Mean Corpuscular HGB Conc 32.7 GM/DL (32-36); Mean Corpuscular Volume 89.2 FL (87-102); Mean Platelet Volume 11.4 FL (9.6-12.0); Monocytes # 1.2 10*3/uL (0.11-0.8); Neutrophils % 69.7 % (38.7-73.9); Platelet Count 161 T/CUMM (130-400); Red Blood Count 2.78 MC/CUMM (3.8-5.5); Red Cell Distribution Width 15.1 % (9.3-17.3); White Blood Count 11.6 T/CUMM (4-12)
[2022-02-15 06:00] LABS: Calcium 8.7 MG/DL (8.5-10.1); Osmolality,Calculated 278.3 MOS/KG (273-304); Potassium 3.9 MMOL/L (3.5-5.1)
[2022-02-15] MEDS: fentaNYL 2 MCG/ROPIV 0.2% EPID 100 ML EPIDURAL SCH (06:41)
[2022-02-15] MEDS ORDERED: buprenorphine HCL 0.3 MG/ML VIAL ONE ×2 (09:05→09:08)
[2022-02-15] MEDS: amLODIPine 5 MG TABLET PO SCH (09:34)
[2022-02-15] MEDS: ASPIRIN EC 81 MG TABLET PO SCH (09:34)
[2022-02-15] MEDS: MULTIVITAMIN (INTRINSIC) CAPSULE PO SCH (12:15)
[2022-02-15] MEDS: ATORVASTATIN 20 MG TABLET PO SCH (20:44)
[2022-02-16 05:54] LABS: Basophils % 0.3 % (0.0-0.8); Eosinophils # 0.1 10*3/uL (0.0-0.87); Eosinophils % 1.2 % (0.00-10.9); Hematocrit 25.6 VOL% (42.0-52.0); Hemoglobin 8.3 GM/DL (14.0-18.0); Immature Granulocytes % 0.3 %; Immature Granulocytes Absolute 0.03 #; Lymphocytes # 1.8 10*3/uL (1.4-4.0); Lymphocytes % 19.3 % (21.2-54.2); Mean Corpuscular HGB Conc 32.4 GM/DL (32-36); Mean Corpuscular Volume 88.6 FL (87-102); Mean Platelet Volume 10.9 FL (9.6-12.0); Monocytes # 1.1 10*3/uL (0.11-0.8); Monocytes % 11.7 % (1.7-12.7); Neutrophils % 67.2 % (38.7-73.9); Platelet Count 193 T/CUMM (130-400); Red Blood Count 2.89 MC/CUMM (3.8-5.5); Red Cell Distribution Width 14.8 % (9.3-17.3); White Blood Count 9.3 T/CUMM (4-12)
[2022-02-16 06:07] LABS: Calcium 8.6 MG/DL (8.5-10.1); Osmolality,Calculated 272.7 MOS/KG (273-304); Potassium 3.2 MMOL/L (3.5-5.1)
[2022-02-16] MEDS ORDERED: MAGNESIUM SULF INJ 3 GM in SODIUM CHLORIDE 0.9% 100 ML IV ONE (07:08)
[2022-02-16] MEDS ORDERED: MAGNESIUM SULF RIDER 2 GM/50 ML PREMIX IV ONE (08:00)
[2022-02-16] MEDS ORDERED: POTASSIUM CHLORIDE 20 MEQ TABLET PO ONE (08:00)
[2022-02-16] MEDS: MULTIVITAMIN (INTRINSIC) CAPSULE PO SCH (09:25)
[2022-02-16] MEDS: ASPIRIN EC 81 MG TABLET PO SCH (09:25)
[2022-02-16] MEDS: amLODIPine 5 MG TABLET PO SCH (09:26)
[2022-02-16 11:37] VITALS: BP 137/60
== END 2022-02-16 14:08 | disposition home health service (06) | DRG 271 ==
LOC: N.ED 09:30 → N.EDINP 15:27 → SUATTDRO 15:27 → N.TELES 16:43 → N.ICU 02-12 13:08 → N.3E 02-14 15:50
PROVIDERS: ADMIT Internal Medicine; ATTEND Internal Medicine

== ENCOUNTER 2022-03-10 09:56 | Observation (INO) ==
[2022-03-10 10:28] LABS: Basophils # 0.1 10*3/uL (0.0-0.2); Basophils % 0.6 % (0.0-0.8); Eosinophils # 0.1 10*3/uL (0.0-0.87); Eosinophils % 0.7 % (0.00-10.9); Hematocrit 42.8 VOL% (42.0-52.0); Hemoglobin 13.9 GM/DL (14.0-18.0); Immature Granulocytes % 0.5 %; Immature Granulocytes Absolute 0.08 #; Lymphocytes # 1.7 10*3/uL (1.4-4.0); Lymphocytes % 11.8 % (21.2-54.2); Mean Corpuscular HGB Conc 32.5 GM/DL (32-36); Mean Corpuscular Volume 82.9 FL (87-102); Mean Platelet Volume 10.7 FL (9.6-12.0); Monocytes # 0.9 10*3/uL (0.11-0.8); Monocytes % 6.1 % (1.7-12.7); Neutrophils % 80.3 % (38.7-73.9); Platelet Count 326 T/CUMM (130-400); Red Blood Count 5.16 MC/CUMM (3.8-5.5); Red Cell Distribution Width 14.8 % (9.3-17.3); White Blood Count 14.7 T/CUMM (4-12)
[2022-03-10 10:53] LABS: Albumin 4.3 G/DL (3.4-5.0); Bilirubin,Total 0.4 MG/DL (0.20-1.00); Calcium 9.9 MG/DL (8.5-10.1); Osmolality,Calculated 278.7 MOS/KG (273-304); Potassium 4.2 MMOL/L (3.5-5.1); Total Protein 8.7 G/DL (6.4-8.2)
[2022-03-10 11:00] LABS: Platelet Estimate Normal
[2022-03-10 11:01] LABS: Anisocytosis Slight; Macrocytosis Slight
[2022-03-10 13:10] LABS: Bilirubin,Urine Negative (Negative); Blood, Urine Trace mg/dL (Negative); Glucose,Urine (UA) Negative (Negative); Ketones,Urine Negative (Negative); Mucus,Urine Occasional /LPF (Occasional); Nitrite,Urine Negative (Negative); Protein,Urine 30 mg/dL (Negative); RBC,Urine 13 /HPF (0-4); Squamous Epithelial Cell,Urine Occasional /HPF (0-10); Urine Appearance Cloudy (Clear); Urine Color Yellow (Yellow); Urine Urobilinogen 0.2 eU/dL (<2.0)
[2022-03-10] MEDS ORDERED: LEVOFLOXACIN INJ 750 MG/150 ML PREMIX IV STA (13:53)
[2022-03-10] MEDS ORDERED: ACETAMINOPHEN 325 MG TABLET PO PRN (14:06)
[2022-03-10] MEDS ORDERED: hydrALAZINE 20 MG/1 ML VIAL IV PRN (14:06)
[2022-03-10] MEDS ORDERED: NICOTINE 21 MG/24 HR PATCH TRANSDERM PRN (14:06)
[2022-03-10] MEDS ORDERED: ONDANSETRON 4 MG/2 ML VIAL IV PRN (14:06)
[2022-03-10] MEDS: LACTATED RINGERS 1,000 ML IV SCH (15:44)
[2022-03-10] MEDS: MONTELUKAST 10 MG TABLET PO SCH (20:49)
[2022-03-10] MEDS: ATORVASTATIN 20 MG TABLET PO SCH (20:49)
[2022-03-10] MEDS: ENOXAPARIN 40 MG/0.4 ML SYRINGE SUBCUT SCH (20:49)
[2022-03-11] MEDS: LACTATED RINGERS 1,000 ML IV SCH ×3 (03:30→15:04)
[2022-03-11 05:57] LABS: Basophils # 0.1 10*3/uL (0.0-0.2); Basophils % 0.9 % (0.0-0.8); Eosinophils # 0.1 10*3/uL (0.0-0.87); Eosinophils % 1.3 % (0.00-10.9); Hematocrit 34.5 VOL% (42.0-52.0); Immature Granulocytes % 0.3 %; Immature Granulocytes Absolute 0.03 #; Lymphocytes # 2.8 10*3/uL (1.4-4.0); Lymphocytes % 28.1 % (21.2-54.2); Mean Corpuscular HGB Conc 33.3 GM/DL (32-36); Mean Corpuscular Volume 81.8 FL (87-102); Mean Platelet Volume 11.5 FL (9.6-12.0); Monocytes # 0.7 10*3/uL (0.11-0.8); Monocytes % 7.2 % (1.7-12.7); Neutrophils % 62.2 % (38.7-73.9); Red Blood Count 4.22 MC/CUMM (3.8-5.5); Red Cell Distribution Width 14.7 % (9.3-17.3)
[2022-03-11 06:02] LABS: Hemoglobin 11.5 GM/DL (14.0-18.0); Platelet Count 242 T/CUMM (130-400); White Blood Count 9.9 T/CUMM (4-12)
[2022-03-11 06:11] LABS: Alanine Aminotransferase 30 U/L (16-61); Albumin 3.5 G/DL (3.4-5.0); Alkaline Phosphatase 114 U/L (45-117); Aspartate Amino Transferase 19 U/L (0-37); Bilirubin,Total < 0.39 MG/DL (0.20-1.00); Blood Urea Nitrogen 16 MG/DL (7-18); Calcium 8.9 MG/DL (8.5-10.1); Carbon Dioxide 19 MMOL/L (21-32); Chloride 111 MMOL/L (98-107); Glucose 102 MG/DL (74-106); Osmolality,Calculated 277.5 MOS/KG (273-304); Potassium 3.6 MMOL/L (3.5-5.1); Sodium 139 MMOL/L (136-145); Total Protein 7.5 G/DL (6.4-8.2)
[2022-03-11] MEDS: CLOPIDOGREL 75 MG TABLET PO SCH (08:39)
[2022-03-11] MEDS: ASPIRIN EC 81 MG TABLET PO SCH (08:39)
[2022-03-11] MEDS: amLODIPine 5 MG TABLET PO SCH (08:39)
[2022-03-11] MEDS: LEVOFLOXACIN INJ 750 MG/150 ML PREMIX IV SCH (14:58)
[2022-03-11] MEDS: CHOLECALCIFEROL 1,000 UNIT TABLET PO SCH (16:23)
[2022-03-11] MEDS: DOCUSATE SODIUM 100 MG CAPSULE PO SCH ×3 (16:23→20:49)
[2022-03-11] MEDS: VANCOMYCIN INJ 750 MG in SODIUM CHLORIDE 0.9% 250 ML IV SCH (16:24)
[2022-03-11] MEDS: ATORVASTATIN 20 MG TABLET PO SCH (20:48)
[2022-03-11] MEDS: ENOXAPARIN 40 MG/0.4 ML SYRINGE SUBCUT SCH (20:48)
[2022-03-11] MEDS: MONTELUKAST 10 MG TABLET PO SCH (20:49)
[2022-03-12] MEDS: LACTATED RINGERS 1,000 ML IV SCH (01:38)
[2022-03-12] MEDS: VANCOMYCIN INJ 750 MG in SODIUM CHLORIDE 0.9% 250 ML IV SCH ×2 (04:19→16:03)
[2022-03-12] MEDS: CLOPIDOGREL 75 MG TABLET PO SCH (08:49)
[2022-03-12] MEDS: amLODIPine 5 MG TABLET PO SCH (08:49)
[2022-03-12] MEDS: CYANOCOBALAMIN 500 MCG TABLET PO SCH (08:49)
[2022-03-12] MEDS: ASPIRIN EC 81 MG TABLET PO SCH (08:49)
[2022-03-12] MEDS: CHOLECALCIFEROL 1,000 UNIT TABLET PO SCH (08:49)
[2022-03-12] MEDS: DOCUSATE SODIUM 100 MG CAPSULE PO SCH ×2 (08:49→20:45)
[2022-03-12] MEDS: LEVOFLOXACIN INJ 750 MG/150 ML PREMIX IV SCH (13:51)
[2022-03-12] MEDS: ENOXAPARIN 40 MG/0.4 ML SYRINGE SUBCUT SCH (20:45)
[2022-03-12] MEDS: SODIUM BICARBONATE 650 MG TABLET PO SCH (20:45)
[2022-03-12] MEDS: ATORVASTATIN 20 MG TABLET PO SCH (20:45)
[2022-03-12] MEDS: MONTELUKAST 10 MG TABLET PO SCH (20:45)
[2022-03-13] MEDS: VANCOMYCIN INJ 750 MG in SODIUM CHLORIDE 0.9% 250 ML IV SCH (05:15)
[2022-03-13 05:53] LABS: Basophils # 0.1 10*3/uL (0.0-0.2); Eosinophils # 0.3 10*3/uL (0.0-0.87); Eosinophils % 2.7 % (0.00-10.9); Hematocrit 32.3 VOL% (42.0-52.0); Hemoglobin 10.8 GM/DL (14.0-18.0); Lymphocytes # 2.3 10*3/uL (1.4-4.0); Lymphocytes % 24.1 % (21.2-54.2); Mean Corpuscular HGB Conc 33.4 GM/DL (32-36); Mean Platelet Volume 11.2 FL (9.6-12.0); Monocytes # 0.7 10*3/uL (0.11-0.8); Monocytes % 7.3 % (1.7-12.7); Neutrophils % 64.5 % (38.7-73.9); Platelet Count 194 T/CUMM (130-400); Red Blood Count 3.94 MC/CUMM (3.8-5.5); Red Cell Distribution Width 14.7 % (9.3-17.3); White Blood Count 9.6 T/CUMM (4-12)
[2022-03-13 06:27] LABS: Osmolality,Calculated 276.4 MOS/KG (273-304); Potassium 3.4 MMOL/L (3.5-5.1)
[2022-03-13] MEDS ORDERED: POTASSIUM CHLORIDE 20 MEQ TABLET PO PRN (07:00)
[2022-03-13 07:46] VITALS: BP 153/77
[2022-03-13] MEDS: DOCUSATE SODIUM 100 MG CAPSULE PO SCH (08:13)
[2022-03-13] MEDS: ASPIRIN EC 81 MG TABLET PO SCH (08:13)
[2022-03-13] MEDS: CHOLECALCIFEROL 1,000 UNIT TABLET PO SCH (08:13)
[2022-03-13] MEDS: CLOPIDOGREL 75 MG TABLET PO SCH (08:13)
[2022-03-13] MEDS: CYANOCOBALAMIN 500 MCG TABLET PO SCH (08:13)
[2022-03-13] MEDS: SODIUM BICARBONATE 650 MG TABLET PO SCH (08:13)
[2022-03-13] MEDS ORDERED: amLODIPine 2.5 MG TABLET PO SCH (09:00)
== END 2022-03-13 11:27 | disposition home or self-care (01) ==
LOC: N.EDINP 09:56 → N.ED 09:56 → N.2W 15:50 → SUATTDRO 03-11 14:02
PROVIDERS: ADMIT Internal Medicine; ATTEND Hospitalist